=== PATIENT | female | born 1945 ===

== ENCOUNTER 2017-10-03 02:45 | Inpatient (IN) ==
[2017-10-03] MEDS: NS 1,000 ML IV SCH ×4 (02:50→18:55)
--- OUTSIDE RECORDS SUMMARY | 2017-10-03 02:56 | External Medical Summary | Continuity of Care Document ---
:1945 Author Organization [facility] Allergies There is no data. Medications There is no data. Problems There is no data. Procedures There is no data.<section xmlns="urn:hl7-org:v3" xmlns:xsi=" http://www.w3.org/2001/XMLSchema-instance"> <templateId root=" [id number]" /> <templateId root=" [id number]" /> <code codeSystemName=" LOINC" codeSystem="[id number]" code="62353-1&quot ; displayName="Results" /> <title>Results</title> &lt ;text> <table> <thead> <tr> <th& gt;Test</th> <th>Result</th> <th>Range </th> </tr> </thead> <tbody> &lt ;tr> <th colspan="10">MRSA SURVEILLANCE SCREEN - 11/09 14:56</th> </tr> <tr> <td> Uncategorized</td> <td> </td> <td /> & lt;/tr> <tr> <th colspan="10"> URINALYSIS WITH MICROSCOPIC - 07/12/12 15:23</th> </tr> <tr> <td>UA LEUKOCYTE ESTERASE DIPSTICK</td> <td>TRACE </td> <td>NEGATIVE</td> & lt;/tr> <tr> <td>UA NITRITE DIPSTICK</td> <td>NEGATIVE </td> <td>NEGATIVE</td> </tr> <tr> <td>UA PROTEIN DIPSTICK</ td> <td>NEGATIVE </td> <td>NEGATIVE</ td> </tr> <tr> <td>UA GLUCOSE DIPSTICK</td> <td>NEGATIVE </td> <td> NEGATIVE</td> </tr> <tr> <td>UA KETONE DIPSTICK</td> <td>1+ </td> <td> NEGATIVE</td> </tr> <tr> <td>UA UROBILINOGEN DIPSTICK</td> <td>NORMAL </td> & lt;td>NORMAL</td> </tr> <tr> <td& gt;UA BILIRUBIN DIPSTICK</td> <td>NEGATIVE </td> <td>NEGATIVE</td> </tr> <tr> <td>UA BLOOD DIPSTICK</td> <td>NEGATIVE </td&gt ; <td>NEGATIVE</td> </tr> <tr> <td>UA BACTERIA</td> <td>1+ </td> <td>NEGATIVE</td> </tr> <tr> <td>UA EPITHELIAL CELLS</td> <td>1+ epi/hpf</td& gt; <td>0 - 1+</td> </tr> <tr> <td>UA MUCUS</td> <td>1+ </td> & lt;td>NEG TO 1+</td> </tr> <tr> < td>UA RBC</td> <td>0-3 rbc/hpf</td> < td>0 - 3</td> </tr> <tr> <td>UA VOLUME FOR EXAM</td> <td>12.0 mL</td> <td >(12mL STD)</td> </tr> <tr> <td& gt;UAWBC</td> <td>0-1 wbc/hpf</td> <td&gt ;0 - 5</td> </tr> <tr> <td>UA SPECIFIC GRAVITY</td> <td>1.014 </td> <td >1.015-1.025</td> </tr> <tr> <td>UR PH </td> <td>5.0 </td> <td>5.0-7.0</td > </tr> <tr> <th colspan="10" >UR DRUGS OF ABUSE SCREEN - 07/12/12 15:23</th> </tr> <tr> <td>UR AMPHETAMINES SCREEN</td> &lt ;td>NEG (<1000 ng/mL) </td> <td>NEGATIVE</td& gt; </tr> <tr> <td>UR BARBITURATE SCREEN</td> <td>NEG (< 200 ng/mL) </td> <td>NEGATIVE</td> </tr> <tr> & lt;td>DRUGS OF ABUSE SCREEN COMMENT</td> <td> </td&gt ; <td /> </tr> <tr> <td> UR OPIATES SCREEN</td> <td>POS (> 300 ng/mL) </ td> <td>NEGATIVE</td> </tr> <tr> <td>UR PHENCYCLIDINE (PCP) SCREEN</td> <td>NEG (< 25 ng/mL) </td> <td>NEGATIVE</td> </tr> <tr> <td>UR CANNABINOIDS (THC) SCREEN& lt;/td> <td>NEG (< 50 ng/mL) </td> &lt ;td>NEGATIVE</td> </tr> <tr> <td& gt;UR COCAINE METABOLITE SCREEN</td> <td>NEG (< 300 ng/mL) </td> <td>NEGATIVE</td> </tr&gt ; <tr> <td>UR METHADONE SCREEN</td> & lt;td>NEG (< 300 ng/mL) </td> <td>NEGATIVE</ td> </tr> <tr> <td>UR BENZODIAZEPINE SCREEN</td> <td>NEG(< 200 ng/mL) < /td> <td>NEGATIVE</td> </tr> <tr& gt; <th colspan="10">CALCIUM IONIZED - 07/12/12 16:05& lt;/th></tr> <tr> <td>CALCIUM IONIZED</ td> <td>4.6 mg/dL</td> <td>4.5-5.3</td > </tr> <tr> <th colspan="10" >CBC W/DIFF - // 16:05</th> </tr> <tr> <td>BASOPHIL #</td> <td>0.0 k/cumm</td& gt; <td>0.0-0.2</td> </tr> <tr> <td>BASOPHIL %</td> <td>1 %& lt;/td> <td>0-1</td> </tr> <tr&gt ; <td>EOSINOPHIL #</td> <td>0.1 k/cumm</ td> <td>0.1-0.5</td> </tr> <tr&gt ; <td>EOSINOPHIL %</td> <td>2 &# 37;</td> <td>2-4</td> </tr> < tr> <td>GRANULOCYTE #</td> <td>2.7 k/cumm </td> <td>2.0-9.0</td> </tr> < tr> <td>GRANULOCYTE %</td> <td>59 %</td> <td>50-75</td> </tr> < tr> <td>LYMPHOCYTE #</td> <td>1.5 k/cumm& lt;/td> <td>1.0-4.0</td> </tr> < tr> <td>LYMPHOCYTE %</td> <td>33 %</td> <td>20-30</td> </tr> <tr> <td>MEAN CELL HGB</td> <td> 30.2 pg</td> <td>27.0-33.0</td> </tr> <tr> <td>MEAN CELL HGB CONCENTRATION</td> <td>32.9 g/dl</td> <td>32.0-36.0</td> </tr> <tr> <td>MEAN CELL VOLUME</td&gt ; <td>91.8 fl</td> <td>80.0-100.0</td&gt ; </tr> <tr> <td>MONOCYTE #</td> <td>0.3 k/cumm</td> <td>0.1-1.0</td> </tr> <tr> <td>MONOCYTE %</ td> <td>6 %</td> <td>4-6</td& gt; </tr> <tr> <td>RED BLOOD CELL</td&gt ; <td>4.05 m/cumm</td> <td>4.00-6.00</td& gt; </tr> <tr> <td>RED CELL DISTRIBUTIONWIDTH</td> <td>14.8 %</td> <td>11.0-15.6</td> </tr> <tr> <td>WHITE BLOOD CELL</td> <td>4.7 k/cumm</td&gt ; <td>5.0-10.0</td> </tr> <tr> <td>HEMOGLOBIN</td> <td>12.2 gm/dL</td> <td>12.0-16.0</td> </tr> <tr> <td>HEMATOCRIT</td> <td>37.2 %</td&gt ; <td>37.0-47.0</td> </tr> <tr> <td>PLATELET COUNT</td> <td>200 k/cumm</ td> <td>150-450</td> </tr> <tr&gt ; <th colspan="10">METABOLIC PANEL, COMPREHN - 16:05</th> </tr> <tr> <td> POTASSIUM</td> <td>3.7 mmol/L</td> <td&gt ;3.5-5.3</td> </tr> <tr> <td>EST GFR (MDRD)</td> <td>> 60 mL/min</td> <td>> 59</td> </tr> <tr> &lt ;td>ANION GAP</td> <td>11 mmol/L</td> &lt ;td>5-15</td> </tr> <tr> <td> EST CrCl (CG)</td> <td>> 60 mL/min</td> <td>> 59</td> </tr> <tr> <td>GLUCOSE</td> <td>74 mg/dL</td> <td >70-99</td> </tr> <tr> <td> CALCIUM</td> <td>8.6 mg/dL</td> <td> 8.5-10.1</td> </tr> <tr> <td> BLOOD UREA NITROGEN</td> <td>20 mg/dL</td> & lt;td>7-20</td> </tr> <tr> <td> CREATININE</td> <td>0.7 mg/dL</td> <td>0.6 -1.0</td> </tr> <tr> <td>SODIUM& lt;/td> <td>142 mmol/L</td> <td>135-148& lt;/td> </tr> <tr> <td>CHLORIDE</ td> <td>106 mmol/L</td> <td>98-110</td > </tr> <tr> <td>AST/SGOT</td&gt ; <td>32 Units/L</td> <td>10-37</td> </tr> <tr> <td>ALT/SGPT</td> <td>22 Units/L</td> <td>< 66</td> </tr> <tr> <td>CARBON DIOXIDE</td& gt; <td>25 mmol/L</td> <td>21-32</td> </tr> <tr> <td>TOTAL PROTEIN</td&gt ; <td>7.1 gm/dL</td> <td>6.4-8.2</td> </tr> <tr> <td>ALBUMIN</td> <td>3.2 gm/dL</td> <td>3.4-5.0</td> & lt;/tr> <tr> <td>BILI TOTAL</td> & lt;td>0.4 mg/dL</td> <td>0.0-1.0</td> </ tr> <tr> <td>ALKALINE PHOSPHATASE TOTAL</td&gt ; <td>111 Units/L</td> <td>50-136</td&gt ; </tr> <tr> <th colspan="10"&gt ;PHOSPHORUS - /14/12 16:05</th> </tr> <tr> &lt ;td>PHOSPHORUS</td> <td>2.8 mg/dL</td> & lt;td>2.5-4.9</td> </tr> <tr> < th colspan="10">MAGNESIUM -07/12/12 16:05</th> </tr > <tr> <td>MAGNESIUM</td> <td& gt;1.4 mg/dL</td> <td>1.8-2.4</td> </tr&gt ; <tr> <th colspan="10">T4 FREE - 07/12/12 16 :05</th></tr> <tr> <td>T4 FREE</td&gt ; <td>1.2 ng/dL</td> <td>0.9-1.8</td> </tr> <tr> <th colspan="10"> THYROID STIM HORMONE (TSH) - 07/12/12 16:05</th> </tr> < tr> <td>THYROID STIM HORMONE (TSH)</td> <td& gt;0.29 uIU/mL</td> <td>0.34-4.82</td> </tr > <tr> <th colspan="10">ACETAMINOPHEN ( TYLENOL) - 07/12/12 16:05</th> </tr> <tr> <td>ACETAMINOPHEN (TYLENOL)</td> <td>9 mcg/mL</ td> <td>10-30</td> </tr> <tr> <th colspan="10">SALICYLATE (ASPIRIN) - 07/12/12 16:05 </th> </tr> <tr> <td>SALICYLATE& lt;/td> <td>< 2.8 mg/dL</td> <td>2.8- 29.0</td> </tr> <tr> <th colspan=& quot;10">ALCOHOL (ETHANOL) SERUM - 07/12/12 16:05</th> < /tr> <tr> <td>ALCOHOL (ETHANOL) SERUM</td> <td>< 10 mg/dL</td> <td> < 10 </td> </tr> <tr> <th colspan=" 10">GLUCOSE (POC) - 07/12/12 17:12</th> </tr> <tr> <td>GLUCOSE (POC)</td> <td>92 mg/ dL</td> <td>70-99</td> </tr> < tr> <th colspan="10">GLUCOSE (POC) - 07/13/12 00:25& lt;/th> </tr> <tr> <td>GLUCOSE (POC) </td> <td>149 mg/dL</td> <td>70-99< /td> </tr> <tr> <th colspan="10"& gt;GLUCOSE (POC) - 07/13/12 05:53</th> </tr> <tr&gt ; <td>GLUCOSE (POC)</td> <td>125 mg/dL</td&gt ; <td>70-99</td> </tr> <tr> <th colspan="10">CALCIUM IONIZED - 07/13/12 06:02</th&gt ;</tr> <tr> <td>CALCIUM IONIZED</td> <td>4.5 mg/dL</td> <td>4.5-5.3</td> </tr> <tr> <th colspan="10">CBC W/DIFF - 07/13/12 06:02</th> </tr> <tr> <td>EOSINOPHIL #</td> <td>0.1 k/cumm</td> <td>0.1-0.5</td> </tr> <tr> <td>EOSINOPHIL %</td> <td>3 %</ td> <td>2-4</td> </tr> <tr> <td>GRANULOCYTE #</td> <td>2.7 k/cumm</td& gt; <td>2.0-9.0</td> </tr> <tr> <td>GRANULOCYTE %</td> <td>57 &# 37;</td> <td>50-75</td> </tr> &lt ;tr> <td>LYMPHOCYTE #</td> <td>1.5 k/cumm</td& gt; <td>1.0-4.0</td> </tr> <tr> <td>LYMPHOCYTE %</td> <td>32 &# 37;</td> <td>20-30</td> </tr> &lt ;tr> <td>MEAN CELL HGB</td> <td>28.9 pg& lt;/td> <td>27.0-33.0</td> </tr> <tr&gt ; <td>MEAN CELL HGB CONCENTRATION</td> <td> 31.6 g/dl</td> <td>32.0-36.0</td> </tr> <tr> <td>MEAN CELL VOLUME</td> < td>91.4 fl</td> <td>80.0-100.0</td> </tr > <tr> <td>MONOCYTE #</td> <td& gt;0.4 k/cumm</td> <td>0.1-1.0</td> </tr&gt ; <tr> <td>MONOCYTE %</td> & lt;td>8 %</td> <td>4-6</td> </tr > <tr> <td>RED BLOOD CELL</td> &lt ;td>4.09 m/cumm</td> <td>4.00-6.00</td> &lt ;/tr> <tr> <td>RED CELL DISTRIBUTION WIDTH</td > <td>13.6 %</td> <td>11.0-15.6& lt;/td> </tr> <tr> <td>WHITE BLOOD CELL</td> <td>4.8 k/cumm</td> <td>5.0- 10.0</td> </tr> <tr> <td> HEMOGLOBIN</td> <td>11.8 gm/dL</td> <td& gt;12.0-16.0</td> </tr> <tr> <td> HEMATOCRIT</td> <td>37.4 %</td> < td>37.0-47.0</td> </tr> <tr> <td& gt;PLATELET COUNT</td> <td>194 k/cumm</td> & lt;td>150-450</td> </tr> <tr> < th colspan="10">METABOLIC PANEL, COMPREHN - 07/13/12 06:02</th& gt; </tr> <tr> <td>POTASSIUM</td> <td>3.8 mmol/L</td> <td>3.5-5.3</td> </tr> <tr> <td>EST GFR (MDRD)</td> & lt;td>> 60 mL/min</td> <td>> 59</td&gt ; </tr> <tr> <td>ANION GAP</td> <td>9 mmol/L</td> <td>5-15</td> & lt;/tr> <tr> <td>EST CrCl (CG)</td> <td>> 60 mL/min</td> <td>> 59</td > </tr> <tr> <td>GLUCOSE</td> <td>112mg/dL</td> <td>70-99</td> </tr> <tr> <td>CALCIUM</td> <td>8.6 mg/dL</td> <td>8.5-10.1</td> & lt;/tr> <tr> <td>BLOOD UREA NITROGEN</td>& lt;td>13 mg/dL</td> <td>7-20</td> </tr& gt; <tr> <td>CREATININE</td> <td& gt;0.7 mg/dL</td> <td>0.6-1.0</td> </tr&gt ; <tr> <td>SODIUM</td> <td>145 mmol/L&lt ;/td> <td>135-148</td> </tr> <tr& gt; <td>CHLORIDE</td> <td>111 mmol/L</td& gt; <td>98-110</td> </tr> <tr> <td>AST/SGOT</td> <td>29 Units/L</td> <td>10-37</td> </tr><tr> <td&gt ;ALT/SGPT</td> <td>18 Units/L</td> <td&gt ;< 66</td> </tr> <tr> <td> CARBON DIOXIDE</td> <td>25 mmol/L</td> < td>21-32</td> </tr> <tr> <td> TOTAL PROTEIN</td> <td>6.6 gm/dL</td> <td >6.4-8.2</td> </tr> <tr> <td> ALBUMIN</td> <td>3.0 gm/dL</td> <td> 3.4-5.0</td> </tr> <tr> <td>BILI TOTAL</td> <td>0.4 mg/dL</td> <td>0.0- 1.0</td> </tr> <tr> <td>ALKALINE PHOSPHATASE TOTAL</td> <td>102 Units/L</td> <td>50-136</td> </tr> <tr> < th colspan="10">LIPID PANEL - 10/15/12 06:02</th> < /tr> <tr> <td>CHOLESTEROL/HDL RATIO</td> <td>2.2 </td> <td> < 5.0</td> </tr> <tr> <td>LDL CHOLESTEROL</td&gt ; <td>38 mg/dL</td> <td>< 100</td& gt; </tr> <tr> <td>VLDL CHOLESTEROL< /td> <td>13 mg/dL</td> <td>< 30</td> </tr> <tr> <td>TRIGLYCERIDES</td&gt ; <td>66 mg/dL</td> <td>< 150</td& gt; </tr> <tr> <td>CHOLESTEROL</td> <td>95 mg/dL</td> <td>< 200</td> </tr> <tr><td>HDL CHOLESTEROL</td> <td>44 mg/dL</td> <td>> 39</td> </tr> <tr> <th colspan="10"> PHOSPHORUS - 10 06:02</th> </tr> <tr> <td>PHOSPHORUS</td> <td>2.2 mg/dL</td> <td>2.5-4.9</td> </tr> <tr> <th colspan="10">MAGNESIUM - 07/13/12 06:02</th> </tr> <tr> <td>MAGNESIUM</td> <td>1.4 mg/dL</td> <td>1.8-2.4</td> & lt;/tr> <tr> <th colspan="10">GLUCOSE (POC) - 07/13/12 11:49</th> </tr> <tr> <td> GLUCOSE (POC)</td> <td>123 mg/dL</td> <td> 70-99</td> </tr> <tr> <th colspan=& quot;10">GLUCOSE (POC) - 07/13/12 16:35</th> </tr> <tr> <td>GLUCOSE (POC)</td> <td> 160 mg/dL</td> <td>70-99</td> </tr> <tr> <th colspan="10">GLUCOSE (POC)- 01:12</th> </tr> <tr> <td> GLUCOSE (POC)</td> <td>117 mg/dL</td> <td >70-99</td> </tr> <tr> <th colspan="10">CBC W/DIFF - 07/14/12 05:12</th> </tr& gt; <tr> <td>BASOPHIL #</td> <td& gt;0.0k/cumm</td> <td>0.0-0.2</td> </tr&gt ; <tr> <td>BASOPHIL %</td> <td> 1 %</td> <td>0-1</td> </tr> <tr> <td>EOSINOPHIL #</td> <td>0.1 k/ cumm</td> <td>0.1-0.5</td> </tr> <tr> <td>EOSINOPHIL %</td> <td&gt ;3 %</td> <td>2-4</td> </tr> <tr> <td>GRANULOCYTE #</td> <td> 1.6 k/cumm</td> <td>2.0-9.0</td> </tr> & lt;tr> <td>GRANULOCYTE %</td> <td&gt ;38 %</td> <td>50-75</td> </tr> <tr> <td>LYMPHOCYTE #</td> <td> 2.0 k/cumm</td> <td>1.0-4.0</td> </tr> <tr> <td>LYMPHOCYTE %</td> & lt;td>48 %</td> <td>20-30</td> < /tr> <tr> <td>MEAN CELL HGB</td> & lt;td>28.6 pg</td> <td>27.0-33.0</td> </ tr> <tr> <td>MEAN CELL HGB CONCENTRATION</td& gt; <td>30.9 g/dl</td> <td>32.0-36.0</td& gt; </tr> <tr> <td>MEAN CELL VOLUME< /td> <td>92.5 fl</td> <td>80.0-100.0</td& gt; </tr> <tr> <td>MONOCYTE #</td> <td>0.4 k/cumm</td> <td>0.1-1.0</td> </ tr> <tr> <td>MONOCYTE %</td> <td>11 %</td> <td>4-6</td> & lt;/tr> <tr> <td>RED BLOOD CELL</td> <td>3.74 m/cumm</td> <td>4.00-6.00</td> </tr> <tr><td>RED CELL DISTRIBUTION WIDTH</td& gt; <td>14.0 %</td> <td>11.0-15.6</td&gt ; </tr> <tr> <td>WHITE BLOODCELL</td > <td>4.2 k/cumm</td> <td>5.0-10.0</td > </tr> <tr> <td>HEMOGLOBIN</td> <td>10.7 gm/dL</td> <td>12.0-16.0</td> </tr> <tr> <td>HEMATOCRIT</td> <td>34.6 %</td> <td>37.0-47.0</td& gt; </tr> <tr> <td>PLATELET COUNT</ td> <td>182 k/cumm</td> <td>150-450</td> </tr> <tr> <th colspan="10"> METABOLIC PANEL, COMPREHN - 07/14/12 05:12</th> </tr> <tr> <td>POTASSIUM</td> <td>4.6 mmol/L </td> <td>3.5-5.3</td> </tr> < tr> <td>EST GFR (MDRD)</td> <td>> 60 mL /min</td> <td>> 59</td> </tr> <tr> <td>ANION GAP</td> <td>5 mmol/L</td> <td>5-15</td> </tr> &lt ;tr> <td>EST CrCl (CG)</td> <td>> 60 mL/min</td> <td>> 59</td> </tr&gt ; <tr> <td>GLUCOSE</td> <td> 118 mg/dL</td> <td>70-99</td> </tr> <tr> <td>CALCIUM</td> <td>7.9 mg/dL </td> <td>8.5-10.1</td> </tr> &lt ;tr> <td>BLOOD UREA NITROGEN</td> <td>12 mg/dL</td> <td>7-20</td> </tr> & lt;tr> <td>CREATININE</td> <td>0.7 mg/dL& lt;/td> <td>0.6-1.0</td> </tr> < tr> <td>SODIUM</td> <td>143 mmol/L</td > <td>135-148</td> </tr> <tr> <td>CHLORIDE</td> <td>111 mmol/L</td> <td>98-110</td> </tr> <tr> &lt ;td>AST/SGOT</td> <td>22 Units/L</td> &lt ;td>10-37</td> </tr> <tr> <td> ALT/SGPT</td> <td>13 Units/L</td> <td>&amp ;lt; 66</td> </tr> <tr> <td>CARBON DIOXIDE</td> <td>27 mmol/L</td> <td>21- 32</td> </tr> <tr> <td>TOTAL PROTEIN</td> <td>6.1 gm/dL</td> <td> 6.4-8.2</td></tr> <tr> <td>ALBUMIN</ td> <td>2.5 gm/dL</td> <td>3.4-5.0</td > </tr> <tr> <td>BILI TOTAL</td& gt; <td>0.2 mg/dL</td> <td>0.0-1.0</td&gt ; </tr> <tr> <td>ALKALINE PHOSPHATASE TOTAL</td> <td>104 Units/L</td> <td>50-136</ td> </tr> <tr> <th colspan="10& quot;>PHOSPHORUS - 07/14/12 05:12</th> </tr> <tr > <td>PHOSPHORUS</td> <td>2.3 mg/dL</ td> <td>2.5-4.9</td> </tr> <tr&gt ; <th colspan="10">MAGNESIUM - 07/14/12 05:12</th&gt ; </tr> <tr> <td>MAGNESIUM</td> <td>1.8 mg/dL</td> <td>1.8-2.4</td> & lt;/tr> <tr> <th colspan="10">GLUCOSE ( POC) - 07/14/12 06:44</th> </tr> <tr> & lt;td>GLUCOSE (POC)</td> <td>110 mg/dL</td> <td>70-99</td> </tr> </tbody> </ table> </text> <entry> <organizer moodCode="EVN&quot ; classCode="BATTERY"> <templateId root=" [id number]" /> <id nullFlavor="NA&quot ; /> <code codeSystem="local" code="MRSAS" displayName="[facility] SURVEILLANCE SCREEN" /> <statusCode code= "completed" /> <component> <observation moodCode="EVN" classCode="OBS"> <templateId root="[id number]" /> <id nullFlavor ="NA" /> <code codeSystem="local" code=" [facility]" displayName="Uncategorized" /> <statusCode code="completed" /> <effectiveTime value=" [id number]" /> <value xsi:type="ST" value="<pre& gt;<b>MRSA SURVEILLANCE SCREEN</b> See BelowMRSA SURVEILLANCE SCREEN (F) Anoop Date/Time: 07/12/2012 14:56 Sis Date/Time: 07/13/2012 13:56SOURCE : ANTERIOR NARESSPEC DESC: [facility]ETHIC[facility] [phone] [place] [address]</pre>& quot; /> <referenceRange> <observationRange> <text /> </observationRange> </ referenceRange> </observation> </component> </ organizer> </entry> <entry> <organizer moodCode="EVN " classCode="BATTERY"> <templateId root=" 2.16.840.1.094877.10.20.22.4.1" /> <id nullFlavor="NA&quot ; /> <code codeSystem="local" code="UAM" displayName="URINALYSIS WITH MICROSCOPIC" /> <statusCode code="completed" /> <component> <observation moodCode="EVN" classCode="OBS"> <templateId root="216.840.1.793791...22.4.2" /> <id nullFlavor ="NA" /> <code codeSystem="local" code=" LEUESU" displayName="UA LEUKOCYTE ESTERASE DIPSTICK" /> <statusCode code="completed" /> <effectiveTime value="810089354263" /> <value unit="" xsi: type="PQ" value="TRACE" /> <interpretationCode codeSystem="local" code="*" /> < referenceRange> <observationRange> <text> NEGATIVE</text> </observationRange> </ referenceRange> </observation></component> < component> <observation moodCode="EVN" classCode=" OBS"> <templateId root="2.16.840.1.950993.10..22.4.2& quot; /> <id nullFlavor="NA" /> <code codeSystem="local" code="NITRIU" displayName="UA NITRITE DIPSTICK" /> <statusCode code="completed" /> <effectiveTime value="981429709426" /> & lt;value unit="" xsi:type="PQ" value="NEGATIVE" /& gt; <referenceRange> <observationRange> <text>NEGATIVE</text> </observationRange> </ referenceRange> </observation> </component> < component> <observation moodCode="EVN" classCode=" OBS"> <templateId root="2.16.840.1.652556.10.20.22.4.2& quot; /> <id nullFlavor="NA" /> <code codeSystem="local" code="PROTEIU" displayName="UA PROTEIN DIPSTICK" /> <statusCode code="completed" /> <effectiveTime value="742489768239" /> & lt;value unit="" xsi:type="PQ" value="NEGATIVE" /& gt; <referenceRange> <observationRange> <text>NEGATIVE</text> </observationRange> </referenceRange> </observation> </component& gt; <component> <observation moodCode="EVN" classCode="OBS"> <templateId root=" 2.16.840.1.248559.10..22.4.2" /> <id nullFlavor="NA& quot; /> <code codeSystem="local" code="DGLUU&quot ; displayName="UA GLUCOSE DIPSTICK" /> <statusCode code ="completed" /> <effectiveTime value="927686217941 " /> <value unit="" xsi:type="PQ" value= "NEGATIVE" /> <referenceRange> < observationRange> <text>NEGATIVE</text> & lt;/observationRange> </referenceRange> </ observation> </component><component> <observation moodCode="EVN" classCode="OBS"> <templateId root=& quot;2.16.840.1.196248.10..22.4.2" /> <id nullFlavor=&quot ;NA" /> <code codeSystem="local" code="KETONU " displayName="UA KETONE DIPSTICK" /> <statusCode code="completed" /> <effectiveTime value="399920820335& quot; /> <value unit="" xsi:type="PQ" value=& quot;1+" /> <interpretationCode codeSystem="local&quot ; code="*" /> <referenceRange> < observationRange> <text>NEGATIVE</text> < /observationRange> </referenceRange> </observation& gt; </component> <component> <observation moodCode="EVN" classCode="OBS"> <templateId root="2.16.840.1.870675.10.20.22.4.2" /> <id nullFlavor ="NA" /> <code codeSystem="local" code=" UROBILU" displayName="UA UROBILINOGEN DIPSTICK" /> & lt;statusCode code="completed" /> <effectiveTime value= "512529287003" /> <value unit="" xsi:type=& quot;PQ" value="NORMAL" /> <referenceRange> <observationRange> <text>NORMAL</text> </observationRange> </referenceRange> </ observation> </component> <component> < observation moodCode="EVN" classCode="OBS"> < templateId root="2.16.840.1.969406.10..22.4.2" /> < id nullFlavor="NA" /> <code codeSystem="local&quot ; code="BILU" displayName="UA BILIRUBIN DIPSTICK" /> <statusCode code="completed" /> < effectiveTime value="416316439255" /> <value unit=&quot ;" xsi:type="PQ" value="NEGATIVE" /> < referenceRange> <observationRange> <text> NEGATIVE</text> </observationRange> </ referenceRange> </observation> </component> < component> <observation moodCode="EVN" classCode=" OBS"> <templateId root="2.16.840.1.602932.10.20.22.4.2& quot; /> <id nullFlavor="NA" /> <code codeSystem="local" code="SAMUEL" displayName="UA BLOOD DIPSTICK" /><statusCode code="completed" /> &lt ;effectiveTime value="474677235764" /> <value unit=& quot;" xsi:type="PQ" value="NEGATIVE" /> & lt;referenceRange> <observationRange> <text& gt;NEGATIVE</text> </observationRange> </ referenceRange> </observation> </component> < component> <observation moodCode="EVN" classCode=" OBS"> <templateId root="2.16.840.1.516766.10.20.22.4.2& quot; /> <id nullFlavor="NA" /> <code codeSystem="local" code="BACU" displayName="UA BACTERIA " /> <statusCode code="completed" /> & lt;effectiveTime value="130691177975" /> <value unit="& quot; xsi:type="PQ" value="1+" /> < interpretationCode codeSystem="local" code="*" /> <referenceRange> <observationRange> <text& gt;NEGATIVE</text> </observationRange> </ referenceRange> </observation> </component> < component> <observation moodCode="EVN" classCode=" OBS"> <templateId root="2.16.840.1.490526.10.20.22.4.2& quot; /> <id nullFlavor="NA" /> <code codeSystem="local" code="EPIU" displayName="UA EPITHELIAL CELLS" /> <statusCode code="completed" /> <effectiveTime value="300484505428" /> &lt ;value unit="epi/hpf" xsi:type="PQ" value="1+" /& gt; <referenceRange> <observationRange> <text>0 - 1+</text> </observationRange> </referenceRange> </observation> </component&gt ; <component> <observation moodCode="EVN" classCode="OBS"> <templateId root=" 2.16.840.1.395784.10.20.22.4.2" /> <id nullFlavor="NA& quot; /> <code codeSystem="local" code="MUCUSU& quot; displayName="UA MUCUS" /> <statusCode code=" completed" /> <effectiveTime value="741215674029" /> <value unit="" xsi:type="PQ" value="1 +" /> <referenceRange> <observationRange&gt ; <text>NEG TO 1+</text> </observationRange& gt; </referenceRange> </observation> </ component> <component> <observation moodCode="EVN& quot; classCode="OBS"> <templateId root=" 2.16.840.1.887043.10..22.4.2" /> <id nullFlavor="NA& quot; /> <code codeSystem="local" code="RBCU&quot ; displayName="UA RBC" /> <statusCode code="completed& quot; /> <effectiveTime value="773286073026" /> <value unit="rbc/hpf" xsi:type="PQ" value="0-3 " /> <referenceRange> <observationRange&gt ; <text>0 - 3</text> </observationRange& gt; </referenceRange> </observation> </ component> <component> <observation moodCode="EVN& quot; classCode="OBS"> <templateId root=" 2.16.840.1.315301.10..22.4.2" /> <id nullFlavor="NA& quot; /> <code codeSystem="local" code="UAVOL&quot ; displayName="UA VOLUME FOR EXAM" /> <statusCode code= "completed" /> <effectiveTime value="686369469357& quot; /> <value unit="mL" xsi:type="PQ" value ="12.0" /> <referenceRange> < observationRange> <text>(12mL STD)</text> </observationRange> </referenceRange> </ observation> </component> <component> < observation moodCode="EVN" classCode="OBS"> < templateId root="2.16.840.1.052764.10.20.22.4.2" /> < id nullFlavor="NA" /> <code codeSystem="local&quot ; code="WBCU" displayName="UA WBC" /> < statusCode code="completed" /> <effectiveTime value=& quot;049384756741" /> <valueunit="wbc/hpf" xsi: type="PQ" value="0-1" /> <referenceRange> <observationRange> <text>0 - 5</text&gt ; </observationRange> </referenceRange> & lt;/observation> </component> <component> < observation moodCode="EVN" classCode="OBS"> < templateId root="2.16.840.1.873616.10.20.22.4.2" /> < id nullFlavor="NA" /> <code codeSystem="local&quot ; code="SPGRU" displayName="UA SPECIFIC GRAVITY" /> <statusCode code="completed" /> <effectiveTime value="824217889790" /> <value unit="" xsi: type="PQ" value="1.014" /> < interpretationCode codeSystem="local" code="*" /> <referenceRange> <observationRange> < text>1.015-1.025</text> </observationRange> & lt;/referenceRange> </observation> </component> <component> <observation moodCode="EVN" classCode=& quot;OBS"> <templateId root=" 2.16.840.1.311272.10.20.22.4.2" /> <id nullFlavor="NA& quot; /> <code codeSystem="local" code="CHRISTAL" displayName="UR PH" /> <statusCode code="completed " /> <effectiveTime value="078562772879" /> <value unit="" xsi:type="PQ" value="5.0&quot ; /> <referenceRange> <observationRange>< text>5.0-7.0</text> </observationRange> </ referenceRange> </observation> </component> </ organizer> </entry> <entry> <organizer moodCode="EVN " classCode="BATTERY"> <templateId root=" 2.16.840.1.385609.10.20.22.4.1" /> <id nullFlavor="NA&quot ; /> <code codeSystem="local" code="DRUGAB" displayName="UR DRUGS OF ABUSESCREEN" /> <statusCode code=& quot;completed" /> <component> <observation moodCode=&quot ;EVN" classCode="OBS"> <templateId root=" 2.16.840.1.324916.10.20.22.4.2" /> <id nullFlavor="NA& quot; /> <code codeSystem="local" code="AMPHU" displayName="UR AMPHETAMINES SCREEN" /> <statusCode code="completed" /> <effectiveTime value=" 222990457045" /> <value unit="" xsi:type="PQ& quot; value="NEG (<1000 ng/mL)" /> < referenceRange> <observationRange> <text> NEGATIVE</text> </observationRange> </ referenceRange> </observation> </component> < component> <observation moodCode="EVN" classCode=" OBS"> <templateId root="2.16.840.1.300806.10.20.22.4.2& quot; /> <id nullFlavor="NA" /> <code codeSystem="local" code="BARBU" displayName="UR BARBITURATE SCREEN" /> <statusCode code="completed&quot ; /> <effectiveTime value="179052694212" /> <value unit="" xsi:type="PQ" value="NEG (&lt ; 200 ng/mL)" /> <referenceRange><observationRange&gt ; <text>NEGATIVE</text> </ observationRange> </referenceRange> </observation&gt ; </component> <component> <observation moodCode ="EVN" classCode="OBS"> <templateId root=" 2.16.840.1.639829.10..22.4.2" /> <id nullFlavor="NA& quot; /> <code codeSystem="local" code="DAUCOMMENT " displayName="DRUGS OF ABUSE SCREEN COMMENT" /> < statusCode code="completed" /> <effectiveTime value=& quot;387237300206" /> <value unit="" xsi:type=& quot;PQ" value="" /> <referenceRange> & lt;observationRange> <text /> </ observationRange> </referenceRange> </observation> & lt;/component> <component> <observation moodCode="EVN " classCode="OBS"> <templateIdroot=" 2.16.840.1.188409.10..22.4.2" /> <id nullFlavor="NA& quot; /> <code codeSystem="local" code="OPIU&quot ; displayName="UR OPIATES SCREEN" /> <statusCode code=& quot;completed" /> <effectiveTimevalue="273933066675& quot; /> <value unit="" xsi:type="PQ" value=& quot;POS (> 300 ng/mL)" /> <interpretationCode codeSystem="local" code="*" /> < referenceRange> <observationRange> <text> NEGATIVE</text> </observationRange> </ referenceRange> </observation> </component> < component> <observation moodCode="EVN" classCode=" OBS"> <templateId root="2.16.840.1.040199.10.20.22.4.2& quot; /> <id nullFlavor="NA" /><code codeSystem=& quot;local" code="PCPU" displayName="UR PHENCYCLIDINE (PCP) SCREEN" /> <statusCode code="completed" /> <effectiveTime value="141965873996" /> <value unit="" xsi:type="PQ" value="NEG (< 25 ng/mL)& quot; /> <referenceRange> <observationRange> <text>NEGATIVE</text> </observationRange > </referenceRange> </observation> </ component> <component> <observation moodCode="EVN& quot; classCode="OBS"> <templateId root=" 2.16.840.1.199461.10..22.4.2" /> <id nullFlavor="NA& quot; /> <code codeSystem="local" code="THCU&quot ; displayName="UR CANNABINOIDS (THC) SCREEN" /> < statusCode code="completed" /><effectiveTime value=" 996638416602" /> <value unit="" xsi:type="PQ& quot; value="NEG (< 50 ng/mL)" /> < referenceRange> <observationRange> <text> NEGATIVE</text> </observationRange> </ referenceRange> </observation> </component> < component> <observation moodCode="EVN" classCode=" OBS"> <templateId root="2.16.840.1.413752.10..22.4.2& quot; /> <id nullFlavor="NA" /> <code codeSystem="local" code="COCAU" displayName="UR COCAINE METABOLITE SCREEN" /> <statusCode code=" completed" /> <effectiveTime value="545943382504" /> <value unit="" xsi:type="PQ" value=" NEG (< 300 ng/mL)" /> <referenceRange> <observationRange> <text>NEGATIVE</text> & lt;/observationRange> </referenceRange> </ observation> </component> <component> < observation moodCode="EVN" classCode="OBS"> < templateId root="2.16.840.1.293613.10.20.22.4.2" /> <id nullFlavor="NA" /> <code codeSystem="local" code="METHU" displayName="UR METHADONE SCREEN" /> <statusCode code="completed" /> <effectiveTime value="177794591513" /> <value unit="" xsi: type="PQ" value="NEG (< 300 ng/mL)" /> & lt;referenceRange> <observationRange> <text& gt;NEGATIVE</text> </observationRange> </ referenceRange> </observation> </component> < component> <observation moodCode="EVN" classCode=" OBS"> <templateId root="2.16.840.1.359086..20.22.4.2& quot; /> <id nullFlavor="NA" /> <code codeSystem="local" code="BENZU" displayName="UR BENZODIAZEPINE SCREEN" /> <statusCode code="completed& quot; /> <effectiveTime value="189179560174" /> < value unit="" xsi:type="PQ" value="NEG (< 200 ng/mL)" /> <referenceRange> < observationRange> <text>NEGATIVE</text> & lt;/observationRange> </referenceRange> </ observation> </component> </organizer> </entry> & lt;entry> <organizer moodCode="EVN" classCode="BATTERY& quot;> <templateId root="2.16.840.1.756460.10.20.22.4.1" /& gt; <id nullFlavor="NA" /> <code codeSystem=" local" code="CAION" displayName="CALCIUM IONIZED" /&gt ; <statusCode code="completed" /> <component> <observation moodCode="EVN" classCode="OBS"> <templateId root="2.16.840.1.149463.10.20.22.4.2" /> <id nullFlavor="NA" /> <code codeSystem=" local" code="CAION" displayName="CALCIUM IONIZED" /&gt ; <statusCode code="completed" /> < effectiveTime value="430561515522" /> <value unit=&quot ;mg/dL" xsi:type="PQ" value="4.6" /> < referenceRange> <observationRange> <text> 4.5-5.3</text> </observationRange> </ referenceRange> </observation> </component> </ organizer> </entry> <entry> <organizermoodCode="EVN& quot; classCode="BATTERY"> <templateId root=" 2.16.840.1.718527.10.20.22.4.1" /> <id nullFlavor="NA&quot ; /> <code codeSystem="local" code="CBCD" displayName="CBC W/DIFF" /> <statusCodecode="completed " /> <component> <observation moodCode="EVN& quot; classCode="OBS"> <templateId root=" 2.16.840.1.371282.10.20.22.4.2" /> <id nullFlavor="NA& quot; /> <code codeSystem="local" code="BA#" displayName="BASOPHIL #" /> <statusCode code=" completed" /> <effectiveTime value="784655054987" /> <value unit="k/cumm" xsi:type="PQ" value=& quot;0.0" /> <referenceRange> < observationRange> <text>0.0-0.2</text> </ observationRange> </referenceRange> </observation&gt ; </component> <component> <observation moodCode ="EVN" classCode="OBS"> <templateId root=& quot;2.16.840.1.619035.10.20.22.4.2" /> <id nullFlavor=&quot ;NA" /> <code codeSystem="local" code="BA&amp ;#37;" displayName="BASOPHIL %" /> < statusCode code="completed" /> <effectiveTime value=& quot;918700060006" /> <valueunit="%" xsi: type="PQ" value="1" /> <referenceRange> <observationRange> <text>0-1</text> </observationRange> </referenceRange> </ observation> </component> <component> < observation moodCode="EVN" classCode="OBS"> < templateId root="2.16.840.1.049952.10.20.22.4.2" /> < id nullFlavor="NA" /> <code codeSystem="local&quot ; code="EO#" displayName="EOSINOPHIL #" /> < statusCode code="completed" /> <effectiveTime value=" 880702583331" /> <value unit="k/cumm" xsi:type=& quot;PQ" value="0.1" /> <referenceRange> <observationRange> <text>0.1-0.5</text> </observationRange> </referenceRange> </ observation> </component> <component> < observation moodCode="EVN" classCode="OBS"> < templateId root="2.16.840.1.450827.10.20.22.4.2" /> < id nullFlavor="NA" /> <code codeSystem="local&quot ; code="EO%" displayName="EOSINOPHIL %" /&gt ; <statusCode code="completed" /> <effectiveTime value="852271098413" /> <value unit="%& quot; xsi:type="PQ" value="2" /> < referenceRange> <observationRange> <text> 2-4</text> </observationRange> </referenceRange > </observation> </component> <component> <observation moodCode="EVN" classCode="OBS"> <templateId root="2.16.840.1.908590.10.20.22.4.2" /> <id nullFlavor="NA" /> <code codeSystem=& quot;local" code="GR#" displayName="GRANULOCYTE #" /&gt ; <statusCode code="completed" /> < effectiveTime value="188617840541" /> <value unit=&quot ;k/cumm" xsi:type="PQ" value="2.7" /> < referenceRange> <observationRange> <text> 2.0-9.0</text> </observationRange> </ referenceRange> </observation> </component> < component> <observation moodCode="EVN" classCode=" OBS"> <templateId root="2.16.840.1.075627.10.20.22.4.2& quot; /> <id nullFlavor="NA" /><code codeSystem=& quot;local" code="GR%" displayName="GRANULOCYTE &amp ;#37;" /> <statusCode code="completed" /> <effectiveTime value="948825141786" /> <value unit="%" xsi:type="PQ" value="59" /> <referenceRange> <observationRange> <text>50-75</text> </observationRange> &lt ;/referenceRange> </observation> </component> & lt;component> <observation moodCode="EVN" classCode=&quot ;OBS"> <templateId root="2.16.840.1.850639.10.20.22.4.2 " /> <id nullFlavor="NA" /> <code codeSystem="local" code="LY#" displayName="LYMPHOCYTE # " /> <statusCode code="completed" /> & lt;effectiveTime value="530809196308" /> <value unit=& quot;k/cumm" xsi:type="PQ" value="1.5" /> & lt;referenceRange> <observationRange> <text& gt;1.0-4.0</text> </observationRange> </ referenceRange> </observation> </component> < component> <observation moodCode="EVN" classCode=" OBS"> <templateId root="2.16.840.1.424156.10.20.22.4.2& quot; /> <id nullFlavor="NA" /> <code codeSystem="local" code="LY%" displayName=" LYMPHOCYTE %" /> <statusCode code="completed&quot ; /> <effectiveTime value="344060190141" /> <value unit="%" xsi:type="PQ" value="33& quot; /> <interpretationCode codeSystem="local" code=& quot;*" /> <referenceRange> <observationRange > <text>20-30</text> </ observationRange> </referenceRange> </observation&gt ; </component> <component> <observation moodCode ="EVN" classCode="OBS"> <templateId root=& quot;2.16.840.1.603291.10..22.4.2" /> <id nullFlavor=&quot ;NA" /> <code codeSystem="local" code="MCH& quot; displayName="MEAN CELL HGB" /> <statusCode code=& quot;completed" /> <effectiveTime value="384890776900& quot; /> <value unit="pg" xsi:type="PQ" value ="30.2" /> <referenceRange> < observationRange> <text>27.0-33.0</text> </ observationRange> </referenceRange> </observation&gt ; </component> <component> <observation moodCode ="EVN" classCode="OBS"> <templateId root=& quot;2.16.840.1.082828.10.20.22.4.2" /> <id nullFlavor=&quot ;NA" /> <code codeSystem="local" code="[facility]& quot; displayName="MEAN CELL HGB CONCENTRATION" /> < statusCode code="completed" /> <effectiveTime value=& quot;657200161473" /> <value unit="g/dl" xsi:type= "PQ" value="32.9" /> <referenceRange> <observationRange> <text>32.0-36.0</text&gt ; </observationRange> </referenceRange> </ observation> </component> <component> < observation moodCode="EVN" classCode="OBS"> < templateId root="2.16.840.1.380728.10.20.22.4.2" /> < id nullFlavor="NA" /> <code codeSystem="local&quot ; code="MCV" displayName="MEAN CELL VOLUME" /> & lt;statusCode code="completed" /> <effectiveTime value= "320494963857" /> <value unit="fl" xsi:type=& quot;PQ" value="91.8" /> <referenceRange> & lt;observationRange> <text>80.0-100.0</text> </observationRange> </referenceRange> </ observation> </component> <component> < observation moodCode="EVN" classCode="OBS"> < templateId root="2.16.840.1.118023.10.20.22.4.2" /> < id nullFlavor="NA" /> <code codeSystem="local&quot ; code="MO#" displayName="MONOCYTE #" /> < statusCode code="completed" /> <effectiveTime value=& quot;176965210707" /> <value unit="k/cumm" xsi: type="PQ" value="0.3" /> <referenceRange> <observationRange> <text>0.1-1.0</text& gt; </observationRange> </referenceRange> </ observation> </component> <component> < observation moodCode="EVN" classCode="OBS"> < templateId root="2.16.840.1.521671.10.20.22.4.2" /> < id nullFlavor="NA" /> <code codeSystem="local&quot ; code="MO%" displayName="MONOCYTE %" /> <statusCode code="completed" /> < effectiveTime value="901952845262" /> <value unit=&quot ;%" xsi:type="PQ" value="6" /> < referenceRange> <observationRange> <text> 4-6</text> </observationRange> </ referenceRange> </observation> </component> < component> <observation moodCode="EVN" classCode="OBS" > <templateId root="2.16.840.1.361825.10.20.22.4.2" /& gt; <id nullFlavor="NA" /> <code codeSystem=& quot;local" code="RBC" displayName="RED BLOOD CELL" /& gt; <statusCode code="completed" /> < effectiveTime value="428437838305" /> <value unit=&quot ;m/cumm" xsi:type="PQ" value="4.05" /> < referenceRange> <observationRange> <text>4.00-6.00& lt;/text> </observationRange> </referenceRange& gt; </observation> </component> <component> <observation moodCode="EVN" classCode="OBS"> <templateId root="2.16.840.1.983507.10.20.22.4.2" /> <id nullFlavor="NA" /> <code codeSystem=&quot ;local" code="RDW" displayName="RED CELL DISTRIBUTION WIDTH& quot; /> <statusCode code="completed" /> & lt;effectiveTime value="041735257636" /> <value unit=& quot;%" xsi:type="PQ" value="14.8" /> <referenceRange> <observationRange> <text> 11.0-15.6</text> </observationRange> </ referenceRange> </observation> </component> < component> <observation moodCode="EVN" classCode=" OBS"> <templateId root="2.16.840.1.412493.10.20.22.4.2& quot; /> <id nullFlavor="NA" /> <code codeSystem="local" code="WBC" displayName="WHITE BLOOD CELL" /> <statusCode code="completed" /> <effectiveTime value="225972669050" /> <value unit="k/cumm" xsi:type="PQ" value="4.7" /> <interpretationCode codeSystem="local" code="*" /& gt; <referenceRange> <observationRange> <text>5.0-10.0</text> </observationRange> </referenceRange> </observation> </component&gt ; <component> <observation moodCode="EVN" classCode="OBS"> <templateId root=" 2.16.840.1.980839.10.20.22.4.2" /> <id nullFlavor="NA& quot; /> <code codeSystem="local" code="HGBT&quot ; displayName="HEMOGLOBIN" /> <statusCode code=" completed" /> <effectiveTime value="785709092472" /> <value unit="gm/dL" xsi:type="PQ" value=& quot;12.2" /> <referenceRange> < observationRange> <text>12.0-16.0</text> </ observationRange> </referenceRange> </observation&gt ; </component> <component> <observation moodCode ="EVN" classCode="OBS"> <templateId root=& quot;2.16.840.1.188726.10.20.22.4.2" /> <id nullFlavor="NA& quot; /> <code codeSystem="local" code="HCTT&quot ; displayName="HEMATOCRIT" /> <statusCode code=" completed" /> <effectiveTime value="831220073282" /> <value unit="%" xsi:type="PQ" value="37.2" /> <referenceRange> < observationRange> <text>37.0-47.0</text> </observationRange> </referenceRange> </ observation> </component> <component> < observation moodCode="EVN" classCode="OBS"> < templateId root="2.16.840.1.745880.10.20.22.4.2" /> < id nullFlavor="NA" /> <code codeSystem="local&quot ; code="PLT" displayName="PLATELET COUNT" /> &lt ;statusCode code="completed" /> <effectiveTime value=" 307407950876" /> <value unit="k/cumm" xsi:type=& quot;PQ" value="200" /> <referenceRange> <observationRange> <text>150-450</text> </observationRange> </referenceRange> </ observation> </component> </organizer> </entry> & lt;entry> <organizer moodCode="EVN" classCode="BATTERY& quot;> <templateId root="2.16.840.1.527155.10.20.22.4.1" /& gt; <id nullFlavor="NA" /> <code codeSystem=" local" code="METABC" displayName="METABOLIC PANEL, COMPREHN& quot; /> <statusCode code="completed" /> < component> <observation moodCode="EVN" classCode=" OBS"> <templateId root="2.16.840.1.997318.10.20.22.4.2& quot; /> <idnullFlavor="NA" /> <code codeSystem="local" code="K" displayName="POTASSIUM&quot ; /> <statusCode code="completed" /> < effectiveTime value="304529518674" /> <value unit=&quot ;mmol/L" xsi:type="PQ" value="3.7" /> < referenceRange> <observationRange> <text> 3.5-5.3</text> </observationRange> </ referenceRange> </observation> </component> < component> <observation moodCode="EVN" classCode=" OBS"> <templateId root="2.16.840.1.287561.10.20.22.4.2& quot; /> <id nullFlavor="NA" /> <code codeSystem="local" code="eGFR" displayName="EST GFR ( MDRD)" /> <statusCode code="completed" /> <effectiveTime value="764092396734" /> <value unit="mL/min" xsi:type="PQ" value="> 60" /& gt; <referenceRange> <observationRange> <text>> 59</text> </observationRange> </referenceRange> </observation> </component&gt ; <component> <observation moodCode="EVN" classCode="OBS"> <templateId root=" 2.16.840.1.261596.10.20.22.4.2" /> <id nullFlavor="NA& quot;/> <code codeSystem="local" code="GAP" displayName="ANION GAP" /> <statusCode code=" completed" /> <effectiveTime value="371019288916" /> <value unit="mmol/L" xsi:type="PQ" value=& quot;11" /> <referenceRange> < observationRange> <text>5-15</text> </ observationRange> </referenceRange> </observation&gt ; </component> <component> <observation moodCode ="EVN" classCode="OBS"> <templateId root=& quot;2.16.840.1.627070.10.20.22.4.2" /> <id nullFlavor=&quot ;NA" /> <code codeSystem="local" code="eCrCl& quot; displayName="EST CrCl (CG)" /> <statusCode code=" completed" /> <effectiveTime value="578905258644" /> <value unit="mL/min" xsi:type="PQ" value=& quot;> 60" /> <referenceRange> < observationRange> <text>> 59</text> </observationRange> </referenceRange> </ observation> </component> <component> < observation moodCode="EVN" classCode="OBS"> < templateId root="2.16.840.1.214202.10..22.4.2" /> < id nullFlavor="NA" /> <code codeSystem="local&quot ; code="GLU" displayName="GLUCOSE" /> < statusCode code="completed" /> <effectiveTime value=& quot;417380774244" /> <value unit="mg/dL" xsi:type ="PQ" value="74" /> <referenceRange> <observationRange> <text>70-99</text> </observationRange> </referenceRange> </ observation> </component> <component> < observation moodCode="EVN" classCode="OBS"> < templateId root="2.16.840.1.893154.10.20.22.4.2" /> < id nullFlavor="NA" /> <code codeSystem="local&quot ; code="CA" displayName="CALCIUM" /> < statusCode code="completed" /> <effectiveTime value=& quot;613880867682" /> <value unit="mg/dL" xsi:type ="PQ" value="8.6" /> <referenceRange> <observationRange> <text>8.5-10.1</text> </observationRange> </referenceRange> &lt ;/observation> </component> <component> < observation moodCode="EVN" classCode="OBS"> < templateId root="2.16.840.1.421856.10.20.22.4.2" /> < id nullFlavor="NA" /> <code codeSystem="local&quot ; code="BUN" displayName="BLOOD UREA NITROGEN" /> <statusCode code="completed" /> <effectiveTime value="435751836891" /> <value unit="mg/dL" xsi:type="PQ" value="20" /> <referenceRange& gt; <observationRange> <text>7-20</text& gt; </observationRange> </referenceRange> </observation> </component> <component> &lt ;observation moodCode="EVN" classCode="OBS"> &lt ;templateId root="2.16.840.1.070074.10.20.22.4.2" /> < id nullFlavor="NA" /> <code codeSystem="local&quot ; code="CREAT" displayName="CREATININE" /> < statusCode code="completed" /> <effectiveTime value=& quot;324662008769" /> <value unit="mg/dL" xsi:type ="PQ" value="0.7" /> <referenceRange> <observationRange> <text>0.6-1.0</text> </observationRange> </referenceRange> &lt ;/observation> </component> <component> < observation moodCode="EVN" classCode="OBS"> < templateId root="2.16.840.1.255573.10.20.22.4.2" /> < id nullFlavor="NA" /> <code codeSystem="local" code=& quot;NA" displayName="SODIUM" /> <statusCode code=&quot ;completed" /> <effectiveTime value="050590969023&quot ; /> <value unit="mmol/L" xsi:type="PQ" value ="142" /> <referenceRange> < observationRange> <text>135-148</text> & lt;/observationRange> </referenceRange> </ observation> </component> <component> < observation moodCode="EVN" classCode="OBS"> < templateId root="2.16.840.1.693622.10.20.22.4.2" /> < id nullFlavor="NA" /> <code codeSystem="local&quot ; code="CL" displayName="CHLORIDE" /> < statusCode code="completed" /> <effectiveTime value=& quot;594032000845" /> <value unit="mmol/L" xsi:type=" PQ" value="106" /> <referenceRange> <observationRange> <text>98-110</text> & lt;/observationRange> </referenceRange> </ observation> </component> <component> < observation moodCode="EVN" classCode="OBS"> < templateId root="2.16.840.1.377681.10.20.22.4.2" /> <id nullFlavor="NA" /> <code codeSystem="local" code="AST" displayName="AST/SGOT" /> < statusCode code="completed" /> <effectiveTime value=& quot;160958871154" /> <value unit="Units/L" xsi: type="PQ" value="32" /> <referenceRange> <observationRange> <text>10-37</text> </observationRange> </referenceRange> </ observation> </component> <component> < observation moodCode="EVN" classCode="OBS"> < templateId root="2.16.840.1.469116.10.20.22.4.2" /> < id nullFlavor="NA" /> <code codeSystem="local&quot ; code="ALT" displayName="ALT/SGPT" /> < statusCode code="completed" /> <effectiveTime value=& quot;843844817469" /> <value unit="Units/L" xsi: type="PQ" value="22" /> <referenceRange> <observationRange> <text>< 66</ text> </observationRange> </referenceRange> & lt;/observation> </component> <component> < observation moodCode="EVN" classCode="OBS"> < templateId root="2.16.840.1.958176.10.20.22.4.2" /> < id nullFlavor="NA" /> <code codeSystem="local&quot ; code="CO2" displayName="CARBON DIOXIDE" /> &lt ;statusCode code="completed" /> <effectiveTime value=& quot;239084399262" /> <value unit="mmol/L" xsi: type="PQ" value="25" /> <referenceRange> <observationRange> <text>21-32</text> </observationRange> </referenceRange> </ observation> </component> <component> < observation moodCode="EVN" classCode="OBS"> < templateId root="2.16.840.1.562375.10.20.22.4.2" /> < id nullFlavor="NA" /> <code codeSystem="local&quot ; code="TP" displayName="TOTAL PROTEIN" /> < statusCode code="completed" /> <effectiveTime value=& quot;940096231650" /> <value unit="gm/dL" xsi:type ="PQ" value="7.1" /> <referenceRange> <observationRange> <text>6.4-8.2</text> </observationRange> </referenceRange> &lt ;/observation> </component> <component> < observation moodCode="EVN" classCode="OBS"> < templateId root="2.16.840.1.879509.10.20.22.4.2" /> < id nullFlavor="NA" /> <code codeSystem="local&quot ; code="ALB" displayName="ALBUMIN" /> < statusCode code="completed" /> <effectiveTime value=& quot;685234930392" /> <value unit="gm/dL" xsi:type ="PQ" value="3.2" /> <interpretationCode codeSystem="local" code="*" /> < referenceRange> <observationRange> <text> 3.4-5.0</text> </observationRange> </ referenceRange> </observation> </component> < component> <observation moodCode="EVN" classCode=" OBS"> <templateId root="2.16.840.1.477412.10.20.22.4.2& quot; /> <id nullFlavor="NA" /> <code codeSystem="local" code="BILTOT" displayName="BILI TOTAL" /> <statusCode code="completed" /> &lt ;effectiveTime value="603242583634" /> <value unit=& quot;mg/dL" xsi:type="PQ" value="0.4" /> & lt;referenceRange> <observationRange> <text& gt;0.0-1.0</text> </observationRange> </ referenceRange> </observation> </component> < component> <observation moodCode="EVN" classCode=" OBS"> <templateId root="2.16.840.1.271766.10.20.22.4.2& quot; /> <id nullFlavor="NA" /> <code codeSystem="local" code="ALKP" displayName="ALKALINE PHOSPHATASE TOTAL" /> <statusCode code="completed&quot ; /> <effectiveTime value="607439522662" /> <value unit="Units/L" xsi:type="PQ" value="111& quot; /> <referenceRange> <observationRange> <text>50-136</text> </observationRange& gt; </referenceRange> </observation> </component > </organizer> </entry> <entry> <organizer moodCode="EVN" classCode="BATTERY"> <templateId root="2.16.840.1.708404.10.20.22.4.1" /> <id nullFlavor=& quot;NA" /> <code codeSystem="local" code="PHOS& quot; displayName="PHOSPHORUS" /> <statusCode code=" completed" /> <component> <observation moodCode=& quot;EVN" classCode="OBS"> <templateId root=" 2.16.840.1.389219.10.20.22.4.2" /> <id nullFlavor="NA& quot; /> <code codeSystem="local" code="PHOS&quot ; displayName="PHOSPHORUS" /> <statusCode code=" completed" /> <effectiveTimevalue="116860265929" / > <value unit="mg/dL" xsi:type="PQ" value=& quot;2.8" /> <referenceRange> < observationRange> <text>2.5-4.9</text> </ observationRange> </referenceRange> </observation&gt ; </component> </organizer> </entry> <entry> <organizer moodCode="EVN" classCode="BATTERY"> <templateId root="2.16.840.1.489659.10.20.22.4.1" /> < id nullFlavor="NA" /> <code codeSystem="local" code="MAG" displayName="MAGNESIUM" /> < statusCode code="completed" /> <component> < observation moodCode="EVN" classCode="OBS"> < templateId root="2.16.840.1.121254.10.20.22.4.2" /> < id nullFlavor="NA" /> <code codeSystem="local&quot ; code="MAG" displayName="MAGNESIUM" /> < statusCode code="completed" /> <effectiveTime value=& quot;[id number]" /> <value unit="mg/dL" xsi:type ="PQ" value="1.4" /> <interpretationCode codeSystem="local" code="*" /> <referenceRange> <observationRange> <text>1.8-2.4</text&gt ; </observationRange> </referenceRange> & lt;/observation> </component> </organizer> </entry&gt ; <entry> <organizer moodCode="EVN" classCode=" BATTERY"> <templateId root="[id number]& quot; /> <id nullFlavor="NA" /> <code codeSystem ="local" code="T4F" displayName="T4 FREE" /> <statusCode code="completed" /> <component> <observation moodCode="EVN" classCode="OBS"> <templateId root="2.16.840.1.645378.10.20.22.4.2" /> <id nullFlavor="NA" /> <code codeSystem=" local" code="T4F" displayName="T4 FREE" /> <statusCode code="completed" /> <effectiveTime value ="308001347993" /> <value unit="ng/dL" xsi: type="PQ" value="1.2" /> <referenceRange> <observationRange> <text>0.9-1.8</text&gt ; </observationRange> </referenceRange> & lt;/observation> </component> </organizer> </entry&gt ; <entry> <organizer moodCode="EVN" classCode=" BATTERY"> <templateId root="2.16.840.1.956096.10.20.22.4.1& quot; /> <id nullFlavor="NA" /> <code codeSystem ="local" code="TSH" displayName="THYROID STIM HORMONE ( TSH)" /> <statusCode code="completed" /> < component> <observation moodCode="EVN" classCode=" OBS"> <templateId root="2.16.840.1.928793.10.20.22.4.2& quot; /> <id nullFlavor="NA" /> <code codeSystem="local" code="TSH" displayName="THYROID STIM HORMONE (TSH)" /> <statusCode code="completed&quot ; /> <effectiveTime value="270931454691" /> <value unit="uIU/mL" xsi:type="PQ" value="0.29& quot; /> <interpretationCode codeSystem="local" code=& quot;*" /> <referenceRange> <observationRange& gt; <text>0.34-4.82</text> </ observationRange> </referenceRange> </observation&gt ; </component> </organizer> </entry> <entry> <organizer moodCode="EVN" classCode="BATTERY"> <templateId root="2.16.840.1.271659.10.20.22.4.1" /> < id nullFlavor="NA" /> <code codeSystem="local" code="ACTMN" displayName="ACETAMINOPHEN (TYLENOL)" /> <statusCode code="completed" /> <component> <observation moodCode="EVN" classCode="OBS"> <templateId root="2.16.840.1.425542.10.20.22.4.2" /> < id nullFlavor="NA" /> <code codeSystem="local&quot ; code="ACTMN" displayName="ACETAMINOPHEN (TYLENOL)" /> <statusCode code="completed" /> < effectiveTime value="288964202171" /> <value unit=&quot ;mcg/mL" xsi:type="PQ" value="9" /> < referenceRange> <observationRange> <text> 10-30</text> </observationRange> </ referenceRange> </observation> </component> </ organizer> </entry> <entry> <organizer moodCode="EVN " classCode="BATTERY"> <templateId root=" 2.16.840.1.854161.10.20.22.4.1" /> <id nullFlavor="NA&quot ; /> <code codeSystem="local" code="SALI" displayName="SALICYLATE (ASPIRIN)" /> <statusCode code=& quot;completed" /> <component> <observation moodCode="EVN" classCode="OBS"> <templateId root="2.16.840.1.188260.10.20.22.4.2" /> <id nullFlavor=& quot;NA" /> <code codeSystem="local" code=" SALINUM" displayName="SALICYLATE" /> <statusCode code="completed" /> <effectiveTime value=" 455003030774" /> <value unit="mg/dL" xsi:type=& quot;PQ" value="< 2.8" /> <referenceRange& gt; <observationRange> <text>2.8-29.0</ text> </observationRange> </referenceRange> & lt;/observation> </component> </organizer> </entry&gt ; <entry> <organizer moodCode="EVN" classCode=" BATTERY"> <templateId root="2.16.840.1.081499.10.20.22.4.1& quot; /> <id nullFlavor="NA" /> <code codeSystem ="local" code="ALC" displayName="ALCOHOL (ETHANOL) SERUM" /> <statusCode code="completed" /> < component> <observation moodCode="EVN" classCode=" OBS"> <templateId root="2.16.840.1.013465.10.20.22.4.2& quot; /> <id nullFlavor="NA" /> <code codeSystem="local" code="ALC" displayName="ALCOHOL ( ETHANOL) SERUM" /> <statusCode code="completed" /& gt; <effectiveTime value="438737089066" /> <value unit="mg/dL" xsi:type="PQ" value="< 10" /& gt; <referenceRange> <observationRange> & lt;text> < 10</text> </observationRange> </referenceRange> </observation> </component> </organizer> </entry> <entry> <organizer moodCode= "EVN" classCode="BATTERY"> <templateId root=&quot ;2.16.840.1.945131.10.20.22.4.1" /> <id nullFlavor="NA&quot ; /> <code codeSystem="local" code="GLUMON" displayName="GLUCOSE (POC)" /> <statusCode code=" completed" /> <component> <observation moodCode=& quot;EVN" classCode="OBS"> <templateId root=" 2.16.840.1.677821.10.20.22.4.2" /> <id nullFlavor="NA& quot; /> <code codeSystem="local" code="GLUMON& quot; displayName="GLUCOSE (POC)" /> <statusCode code=& quot;completed" /> <effectiveTime value="517689706096& quot; /> <value unit="mg/dL" xsi:type="PQ" value ="92" /> <referenceRange> < observationRange> <text>70-99</text> < /observationRange> </referenceRange> </observation& gt; </component> </organizer> </entry> <entry> <organizer moodCode="EVN" classCode="BATTERY"> <templateId root="2.16.840.1.466236.10.20.22.4.1" /> < id nullFlavor="NA" /> <code codeSystem="local" code="GLUMON" displayName="GLUCOSE (POC)" /> < statusCode code="completed" /> <component> < observation moodCode="EVN" classCode="OBS"> < templateId root="2.16.840.1.643962.10.20.22.4.2"/> <id nullFlavor="NA" /> <code codeSystem="local" code="GLUMON" displayName="GLUCOSE (POC)" /> &lt ;statusCode code="completed" /> <effectiveTime value=& quot;588096200485" /> <value unit="mg/dL" xsi:type ="PQ" value="149" /> <interpretationCode codeSystem="local" code="*" /> < referenceRange> <observationRange> <text>70- 99</text> </observationRange> </ referenceRange> </observation> </component></ organizer> </entry> <entry> <organizer moodCode="EVN " classCode="BATTERY"> <templateId root=" 2.16.840.1.286376.10.20.22.4.1" /> <id nullFlavor="NA" /& gt; <code codeSystem="local" code="GLUMON" displayName="GLUCOSE (POC)" /> <statusCode code=" completed" /> <component> <observation moodCode=& quot;EVN" classCode="OBS"> <templateId root=" 2.16.840.1.067355.10.20.22.4.2" /> <id nullFlavor="NA& quot; /> <code codeSystem="local" code="GLUMON& quot; displayName="GLUCOSE (POC)" /> <statusCode code=& quot;completed" /> <effectiveTime value="858070068582& quot; /> <value unit="mg/dL" xsi:type="PQ" value="125" /> <interpretationCode codeSystem=" local" code="*" /> <referenceRange> <observationRange> <text>70-99</text> </observationRange> </referenceRange> </ observation> </component> </organizer> </entry> & lt;entry> <organizer moodCode="EVN" classCode="BATTERY& quot;> <templateId root="2.16.840.1.483881.10.20.22.4.1" /& gt; <id nullFlavor="NA" /> <code codeSystem=" local" code="CAION" displayName="CALCIUM IONIZED" /&gt ; <statusCode code="completed" /> <component> <observation moodCode="EVN" classCode="OBS"> <templateId root="2.16.840.1.037023.10..22.4.2" /> <id nullFlavor="NA" /> <code codeSystem=" local" code="CAION" displayName="CALCIUMIONIZED" /> <statusCode code="completed" /> < effectiveTime value="610918442676" /> <value unit=&quot ;mg/dL" xsi:type="PQ" value="4.5" /> < referenceRange> <observationRange> <text> 4.5-5.3</text> </observationRange> </ referenceRange> </observation> </component> </ organizer> </entry> <entry> <organizer moodCode="EVN " classCode="BATTERY"> <templateId root=" 2.16.840.1.546886.10.20.22.4.1" /> <id nullFlavor="NA&quot ; /> <code codeSystem="local" code="CBCD" displayName="CBC W/DIFF" /> <statusCode code=" completed" /> <component> <observation moodCode=& quot;EVN" classCode="OBS"> <templateId root=" 2.16.840.1.824736.10..22.4.2" /> <id nullFlavor="NA& quot; /> <code codeSystem="local" code="EO#" displayName="EOSINOPHIL #" /> <statusCode code=" completed" /> <effectiveTime value="317361605076" /> <value unit="k/cumm" xsi:type="PQ" value=& quot;0.1" /> <referenceRange> < observationRange> <text>0.1-0.5</text> & lt;/observationRange> </referenceRange> </observation& gt; </component> <component> <observation moodCode="EVN" classCode="OBS"> <templateId root="2.16.840.1.811908.10..22.4.2" /> <id nullFlavor ="NA" /> <code codeSystem="local" code=" EO%" displayName="EOSINOPHIL %" /> & lt;statusCode code="completed" /> <effectiveTime value= "313115315726" /> <value unit="%" xsi :type="PQ" value="3" /> <referenceRange> <observationRange> <text>2-4</text> </observationRange> </referenceRange> </ observation> </component> <component> < observation moodCode="EVN" classCode="OBS"> < templateId root="2.16.840.1.638172.10.20.22.4.2" /> < id nullFlavor="NA" /> <code codeSystem="local&quot ; code="GR#" displayName="GRANULOCYTE #" /> < statusCode code="completed" /> <effectiveTime value=& quot;488920282585" /> <value unit="k/cumm" xsi: type="PQ" value="2.7" /> <referenceRange> <observationRange> <text>2.0-9.0</text> </observationRange> </referenceRange> </ observation> </component> <component> < observation moodCode="EVN" classCode="OBS"> < templateId root="2.16.840.1.340605.10..22.4.2"/> <id nullFlavor="NA" /> <code codeSystem="local" code="GR%" displayName="GRANULOCYTE %" /&gt ; <statusCode code="completed" /> < effectiveTime value="099985161651" /> <value unit=" %" xsi:type="PQ" value="57" /> < referenceRange> <observationRange> <text> 50-75</text> </observationRange> </ referenceRange> </observation> </component> < component> <observation moodCode="EVN" classCode=" OBS"> <templateId root="2.16.840.1.421155.10.20.22.4.2& quot; /> <id nullFlavor="NA" /> <code codeSystem="local" code="LY#" displayName="LYMPHOCYTE # " /> <statusCode code="completed" /> & lt;effectiveTime value="138804060634" /> <value unit=& quot;k/cumm" xsi:type="PQ" value="1.5" /> & lt;referenceRange> <observationRange> <text& gt;1.0-4.0</text></observationRange> </referenceRange&gt ; </observation> </component> <component> <observation moodCode="EVN" classCode="OBS"> <templateId root="2.16.840.1.703173.10.20.22.4.2" /> <id nullFlavor="NA" /> <code codeSystem=" local" code="LY%" displayName="LYMPHOCYTE %& quot; /> <statusCode code="completed" /> & lt;effectiveTime value="927590704980" /> <value unit=& quot;%" xsi:type="PQ" value="32" /> <interpretationCode codeSystem="local" code="*" /> <referenceRange> <observationRange> < text>20-30</text> </observationRange> </ referenceRange> </observation> </component> < component> <observation moodCode="EVN" classCode=" OBS"> <templateId root="2.16.840.1.806190.10.20.22.4.2" /& gt; <id nullFlavor="NA" /> <code codeSystem ="local" code="MCH" displayName="MEAN CELL HGB" /& gt; <statusCode code="completed" /> < effectiveTime value="539886665916" /> <value unit=&quot ;pg" xsi:type="PQ" value="28.9" /> < referenceRange> <observationRange> <text> 27.0-33.0</text> </observationRange></referenceRange& gt; </observation> </component> <component> <observation moodCode="EVN" classCode="OBS"> <templateId root="2.16.840.1.403976.10.20.22.4.2" /> <id nullFlavor="NA" /> <code codeSystem=" local" code="MCHC" displayName="MEAN CELL HGBCONCENTRATION& quot; /> <statusCode code="completed" /> & lt;effectiveTime value="607388748527" /> <value unit=& quot;g/dl" xsi:type="PQ" value="31.6" /> & lt;interpretationCode codeSystem="local" code="*" /> <referenceRange> <observationRange> <text> 32.0-36.0</text> </observationRange> </ referenceRange> </observation> </component> < component> <observation moodCode="EVN" classCode=" OBS"> <templateId root="2.16.840.1.749886.10.20.22.4.2& quot; /> <id nullFlavor="NA" /> <code codeSystem="local" code="MCV" displayName="MEAN CELL VOLUME" /> <statusCode code="completed" /> <effectiveTime value="675343466923" /> <value unit="fl" xsi:type="PQ" value="91.4" /> <referenceRange> <observationRange> < text>80.0-100.0</text> </observationRange> & lt;/referenceRange> </observation> </component> < component> <observation moodCode="EVN" classCode=" OBS"> <templateId root="2.16.840.1.726527.10..22.4.2& quot; /> <id nullFlavor="NA" /> <code codeSystem="local" code="MO#" displayName="MONOCYTE #& quot; /> <statusCode code="completed" /> & lt;effectiveTime value="171301403581" /> <value unit=&quot ;k/cumm" xsi:type="PQ" value="0.4" /> < referenceRange> <observationRange> <text> 0.1-1.0</text> </observationRange> </ referenceRange> </observation> </component> < component> <observation moodCode="EVN" classCode=" OBS"> <templateId root="2.16.840.1.242602.10.20.22.4.2& quot; /> <id nullFlavor="NA" /> <code codeSystem="local" code="MO%" displayName=" MONOCYTE %" /> <statusCode code="completed&quot ; /> <effectiveTime value="775330457336" /> < value unit="%" xsi:type="PQ" value="8" /& gt; <interpretationCode codeSystem="local" code="*& quot; /> <referenceRange> <observationRange> <text>4-6</text> </observationRange> </referenceRange> </observation> </ component> <component> <observation moodCode="EVN& quot; classCode="OBS"> <templateId root=" 2.16.840.1.584559.10.20.22.4.2" /> <id nullFlavor="NA& quot; /> <code codeSystem="local" code="RBC" displayName="RED BLOOD CELL" /> <statusCode code=" completed" /> <effectiveTime value="438873598940" /&gt ; <value unit="m/cumm" xsi:type="PQ" value=&quot ;4.09" /> <referenceRange> < observationRange> <text>4.00-6.00</text> </observationRange> </referenceRange> </ observation> </component> <component> < observation moodCode="EVN" classCode="OBS">< templateId root="2.16.840.1.414622.10..22.4.2" /> < id nullFlavor="NA" /> <code codeSystem="local&quot ; code="RDW" displayName="RED CELL DISTRIBUTION WIDTH" /&gt ; <statusCode code="completed" /> < effectiveTime value="054458452656" /> <value unit=&quot ;%" xsi:type="PQ" value="13.6" /> & lt;referenceRange> <observationRange> <text>11.0- 15.6</text> </observationRange> </ referenceRange> </observation> </component> < component> <observation moodCode="EVN" classCode=" OBS"> <templateId root="2.16.840.1.129722.10..22.4.2" / > <id nullFlavor="NA" /> <code codeSystem="local" code="WBC" displayName="WHITE BLOOD CELL" /> <statusCode code="completed" /> <effectiveTime value="590811205922" /> <value unit="k/cumm" xsi:type="PQ" value="4.8" /> <interpretationCode codeSystem="local" code="*" /& gt; <referenceRange> <observationRange> <text>5.0-10.0</text> </observationRange> </referenceRange> </observation> </component&gt ; <component> <observation moodCode="EVN" classCode="OBS"> <templateId root=" 2.16.840.1.159278.10.20.22.4.2" /> <id nullFlavor="NA& quot; /><code codeSystem="local" code="HGBT" displayName="HEMOGLOBIN" /> <statusCode code=" completed" /> <effectiveTime value="490905694612" /> <value unit="gm/dL" xsi:type="PQ" value=& quot;11.8" /> <interpretationCode codeSystem="local& quot; code="*" /> <referenceRange> < observationRange> <text>12.0-16.0</text> </observationRange> </referenceRange> </ observation> </component> <component> < observation moodCode="EVN" classCode="OBS"> < templateId root="2.16.840.1.941402.10.20.22.4.2" /> < id nullFlavor="NA" /> <code codeSystem="local&quot ; code="HCTT" displayName="HEMATOCRIT" /> < statusCode code="completed" /> <effectiveTime value=& quot;107622354120" /> <value unit="%" xsi: type="PQ" value="37.4" /> <referenceRange&gt ; <observationRange> <text>37.0-47.0</ text> </observationRange> </referenceRange> </observation> </component> <component> & lt;observation moodCode="EVN" classCode="OBS"> & lt;templateId root="2.16.840.1.525925.10.20.22.4.2" /> < id nullFlavor="NA" /> <code codeSystem="local&quot ; code="PLT" displayName="PLATELET COUNT" /> &lt ;statusCode code="completed" /> <effectiveTime value=& quot;761467778667" /> <value unit="k/cumm" xsi: type="PQ" value="194" /> <referenceRange> <observationRange> <text>150-450</text& gt; </observationRange> </referenceRange> </observation> </component> </organizer> </entry > <entry> <organizer moodCode="EVN"classCode=" BATTERY"> <templateId root="2.16.840.1.884140.10.20.22.4.1& quot; /> <id nullFlavor="NA" /> <code codeSystem ="local" code="METABC" displayName="METABOLIC PANEL, COMPREHN" /> <statusCode code="completed" /> & lt;component> <observation moodCode="EVN" classCode=&quot ;OBS"> <templateId root="2.16.840.1.876693.10.20.22.4.2 " /> <id nullFlavor="NA" /> <code codeSystem="local" code="K" displayName="POTASSIUM&quot ; /> <statusCode code="completed" /> < effectiveTime value="863277859918" /> <value unit=&quot ;mmol/L" xsi:type="PQ" value="3.8" /> < referenceRange> <observationRange> <text> 3.5-5.3</text> </observationRange> </ referenceRange> </observation> </component> < component> <observation moodCode="EVN" classCode=" OBS"> <templateId root="2.16.840.1.353142.10.20.22.4.2& quot; /> <id nullFlavor="NA" /> <code codeSystem="local" code="eGFR" displayName="EST GFR ( MDRD)" /> <statusCode code="completed" /> & lt;effectiveTime value="552702362706" /> <value unit=& quot;mL/min" xsi:type="PQ" value="> 60" /> <referenceRange> <observationRange> <text >> 59</text> </observationRange> </ referenceRange> </observation> </component> < component> <observation moodCode="EVN" classCode=" OBS"> <templateId root="2.16.840.1.624031.10.20.22.4.2& quot; /> <id nullFlavor="NA" /> <code codeSystem="local" code="GAP" displayName="ANION GAP& quot; /> <statusCode code="completed" /> & lt;effectiveTime value="355118644835" /> <value unit=& quot;mmol/L" xsi:type="PQ" value="9" /> &lt ;referenceRange> <observationRange> <text&gt ;5-15</text> </observationRange> </ referenceRange> </observation> </component> < component> <observation moodCode="EVN" classCode="OBS& quot;> <templateId root="2.16.840.1.398557.10.20.22.4.2&quot ; /> <id nullFlavor="NA" /> <code codeSystem="local" code="eCrCl" displayName="EST CrCl ( CG)" /> <statusCode code="completed" /> <effectiveTime value="573696109706" /> <value unit="mL/min" xsi:type="PQ" value="> 60" /& gt; <referenceRange> <observationRange> <text>> 59</text> </observationRange> </referenceRange> </observation> </component > <component><observation moodCode="EVN" classCode=& quot;OBS"> <templateId root=" 2.16.840.1.287888.10.20.22.4.2" /> <id nullFlavor="NA& quot; /> <code codeSystem="local" code="GLU" displayName="GLUCOSE" /> <statusCode code=" completed" /> <effectiveTime value="272783973525" /> <value unit="mg/dL" xsi:type="PQ" value=& quot;112" /> <interpretationCode codeSystem="local&quot ; code="*" /> <referenceRange> < observationRange> <text>70-99</text> < /observationRange> </referenceRange> </observation& gt; </component> <component> <observation moodCode="EVN"classCode="OBS"> <templateId root="2.16.840.1.234682.10.20.22.4.2" /> <id nullFlavor ="NA" /> <code codeSystem="local" code=" CA" displayName="CALCIUM" /> <statusCode code=& quot;completed" /> <effectiveTime value="526064457212& quot; /> <value unit="mg/dL" xsi:type="PQ" value="8.6" /> <referenceRange> < observationRange> <text>8.5-10.1</text> & lt;/observationRange> </referenceRange> </ observation> </component> <component> < observation moodCode="EVN" classCode="OBS"> < templateId root="2.16.840.1.315097.10.20.22.4.2" /> < id nullFlavor="NA" /> <code codeSystem="local&quot ; code="BUN" displayName="BLOOD UREA NITROGEN" /> <statusCode code="completed" /> <effectiveTime value="045995767075" /> <value unit="mg/dL" xsi:type="PQ" value="13" /> <referenceRange& gt; <observationRange> <text>7-20</text> </observationRange> </referenceRange> </ observation> </component> <component> < observation moodCode="EVN" classCode="OBS"> < templateId root="2.16.840.1.351566.10.20.22.4.2" /> < id nullFlavor="NA" /> <code codeSystem="local&quot ; code="CREAT" displayName="CREATININE" /> < statusCode code="completed" /> <effectiveTime value=& quot;518559168585" /> <value unit="mg/dL" xsi:type ="PQ" value="0.7" /> <referenceRange> <observationRange> <text>0.6-1.0</text> </observationRange> </referenceRange> &lt ;/observation> </component> <component> < observation moodCode="EVN" classCode="OBS"> < templateId root="2.16.840.1.320755.10.20.22.4.2" /> < id nullFlavor="NA" /> <code codeSystem="local" code="NA" displayName="SODIUM" /> <statusCode code="completed" /> <effectiveTime value=" 208459703153" /> <value unit="mmol/L" xsi:type=& quot;PQ" value="145" /> <referenceRange> <observationRange> <text>135-148</text> </observationRange> </referenceRange> </ observation> </component> <component> < observation moodCode="EVN" classCode="OBS"> < templateId root="2.16.840.1.668933.10.20.22.4.2" /> < id nullFlavor="NA" /> <code codeSystem="local&quot ; code="CL" displayName="CHLORIDE" /> < statusCodecode="completed" /> <effectiveTime value=& quot;287907685807" /> <value unit="mmol/L" xsi:type=& quot;PQ" value="111" /> <interpretationCode codeSystem="local" code="*" /> < referenceRange> <observationRange> <text> 98-110</text> </observationRange> </ referenceRange> </observation> </component> < component> <observation moodCode="EVN" classCode=" OBS"> <templateId root="2.16.840.1.507892.10..22.4.2& quot; /> <id nullFlavor="NA" /> <code codeSystem="local" code="AST"displayName="AST/SGOT&quot ; /> <statusCode code="completed" /> < effectiveTime value="596018064141" /> <value unit=&quot ;Units/L" xsi:type="PQ" value="29" /> < referenceRange> <observationRange> <text> 10-37</text> </observationRange> </ referenceRange> </observation> </component> < component> <observation moodCode="EVN" classCode=" OBS"> <templateId root="2.16.840.1.494758.10.20.22.4.2& quot; /> <id nullFlavor="NA" /> <code codeSystem="local" code="ALT" displayName="ALT/SGPT& quot; /> <statusCode code="completed" /> & lt;effectiveTime value="286397419697" /> <value unit=& quot;Units/L" xsi:type="PQ" value="18" /> & lt;referenceRange> <observationRange> <text>& amp;lt; 66</text> </observationRange> </ referenceRange> </observation> </component> < component> <observation moodCode="EVN" classCode=" OBS"> <templateId root="2.16.840.1.957241.10.20.22.4.2& quot; /> <id nullFlavor="NA" /><code codeSystem=& quot;local" code="CO2" displayName="CARBON DIOXIDE" /& gt; <statusCode code="completed" /> < effectiveTime value="240710708268" /> <value unit=&quot ;mmol/L" xsi:type="PQ" value="25" /> < referenceRange> <observationRange> <text> 21-32</text> </observationRange> </ referenceRange> </observation> </component> < component> <observation moodCode="EVN" classCode=" OBS"> <templateId root="2.16.840.1.575328.10.20.22.4.2& quot; /> <id nullFlavor="NA" /> <code codeSystem="local" code="TP" displayName="TOTAL PROTEIN " /> <statusCode code="completed" /> & lt;effectiveTime value="259757840763" /> <value unit=& quot;gm/dL" xsi:type="PQ" value="6.6" /> < referenceRange> <observationRange> <text> 6.4-8.2</text> </observationRange> </ referenceRange> </observation> </component> < component> <observation moodCode="EVN" classCode=" OBS"> <templateId root="2.16.840.1.086562.10.20.22.4.2& quot;/> <id nullFlavor="NA" /> <code codeSystem="local"code="ALB" displayName="ALBUMIN&quot ; /> <statusCode code="completed" /> < effectiveTime value="286448628091" /> <value unit=&quot ;gm/dL" xsi:type="PQ" value="3.0" /> < interpretationCode codeSystem="local" code="*" /> <referenceRange> <observationRange> < text>3.4-5.0</text> </observationRange> </ referenceRange> </observation> </component> < component> <observation moodCode="EVN" classCode=" OBS"> <templateId root="2.16.840.1.709154.10.20.22.4.2& quot; /> <id nullFlavor="NA" /> <code codeSystem="local" code="BILTOT" displayName="BILI TOTAL" /> <statusCode code="completed" /> <effectiveTime value="690885346203" /> <value unit="mg/dL" xsi:type="PQ" value="0.4" /> <referenceRange> <observationRange> &lt ;text>0.0-1.0</text> </observationRange> < /referenceRange> </observation> </component> &lt ;component> <observation moodCode="EVN" classCode="OBS& quot;> <templateId root="2.16.840.1.731168.10.20.22.4.2&quot ; /> <id nullFlavor="NA" /> <code codeSystem ="local" code="ALKP" displayName="ALKALINE PHOSPHATASE TOTAL" /> <statusCode code="completed" /> <effectiveTime value="343735277530" /> <value unit="Units/L" xsi:type="PQ" value="102" /> <referenceRange> <observationRange> & lt;text>50-136</text> </observationRange> &lt ;/referenceRange> </observation> </component> < /organizer> </entry> <entry> <organizer moodCode=" EVN" classCode="BATTERY"> <templateId root=" [id number]" /> <id nullFlavor="NA&quot ; /> <code codeSystem="local" code="HDLPRO" displayName="LIPID PANEL" /> <statusCode code=" completed" /> <component> <observation moodCode=" EVN" classCode="OBS"> <templateId root=" [id number]" /> <id nullFlavor="NA& quot; /> <code codeSystem="local" code="CHOL/HDL& quot; displayName="CHOLESTEROL/HDL RATIO" /> < statusCode code="completed" /> <effectiveTime value=& quot;[id number]" /> <value unit="" xsi:type=& quot;PQ" value="2.2" /> <referenceRange> <observationRange> <text> < 5.0</text> </observationRange> </referenceRange> & lt;/observation> </component> <component>< observation moodCode="EVN" classCode="OBS"> < templateId root="2.16.840.1.303064.10.20.22.4.2" /> < id nullFlavor="NA" /> <code codeSystem="local" code ="LDLX" displayName="LDL CHOLESTEROL" /> < statusCode code="completed" /> <effectiveTime value=& quot;896585393231" /> <value unit="mg/dL" xsi:type ="PQ" value="38" /> <referenceRange> <observationRange> <text>< 100</text> </observationRange> </referenceRange> </ observation> </component> <component> < observation moodCode="EVN" classCode="OBS"> < templateId root="2.16.840.1.461504.10.20.22.4.2" /> < id nullFlavor="NA" /> <code codeSystem="local&quot ; code="VLDL" displayName="VLDL CHOLESTEROL" /> & lt;statusCode code="completed" /> <effectiveTime value= "274356665438" /> <value unit="mg/dL" xsi: type="PQ" value="13" /> <referenceRange> <observationRange> <text>< 30</ text> </observationRange> </referenceRange> </observation> </component> <component> & lt;observation moodCode="EVN" classCode="OBS"> & lt;templateId root="2.16.840.1.284600.10.20.22.4.2" /> &lt ;id nullFlavor="NA" /> <code codeSystem="local& quot; code="TRIG" displayName="TRIGLYCERIDES" /> <statusCode code="completed" /> <effectiveTime value="573510109423" /> <value unit="mg/dL" xsi:type="PQ" value="66" /> <referenceRange> <observationRange> <text>< 150</ text> </observationRange> </referenceRange> </observation> </component> <component> <observation moodCode="EVN" classCode="OBS"> <templateId root="2.16.840.1.903852.10.20.22.4.2" /> <id nullFlavor="NA" /> <code codeSystem=" local" code="CHOL" displayName="CHOLESTEROL" /> <statusCode code="completed" /> < effectiveTime value="091531013070" /> <value unit=&quot ;mg/dL" xsi:type="PQ" value="95" /> < referenceRange> <observationRange> <text> < 200</text> </observationRange> </ referenceRange> </observation> </component> < component> <observation moodCode="EVN" classCode=" OBS"> <templateId root="2.16.840.1.565180.10.20.22.4.2& quot; /> <id nullFlavor="NA" /> <code codeSystem="local" code="HDL" displayName="HDL CHOLESTEROL" /> <statusCode code="completed" /&gt ; <effectiveTime value="023195490618" /> < value unit="mg/dL" xsi:type="PQ" value="44" /> <referenceRange> <observationRange> <text>> 39</text> </observationRange> </referenceRange> </observation> </component& gt; </organizer> </entry> <entry> <organizer moodCode="EVN" classCode="BATTERY"> <templateId root="2.16.840.1.586290.10.20.22.4.1" /> <id nullFlavor=& quot;NA" /> <code codeSystem="local" code="PHOS& quot; displayName="PHOSPHORUS" /> <statusCode code=" completed" /> <component> <observation moodCode=& quot;EVN" classCode="OBS"> <templateId root=" 2.16.840.1.470825.10.20.22.4.2" /> <id nullFlavor="NA& quot; /> <code codeSystem="local" code="PHOS&quot ; displayName="PHOSPHORUS" /> <statusCode code=" completed" /> <effectiveTime value="945870934924" / > <value unit="mg/dL" xsi:type="PQ" value=& quot;2.2" /> <interpretationCode codeSystem="local&quot ; code="*" /> <referenceRange> < observationRange> <text>2.5-4.9</text> & lt;/observationRange></referenceRange> </observation> </component> </organizer> </entry> <entry> &lt ;organizer moodCode="EVN" classCode="BATTERY"> < templateId root="2.16.840.1.331981.10.20.22.4.1" /> <id nullFlavor="NA" /> <code codeSystem="local" code= "MAG" displayName="MAGNESIUM" /> <statusCode code ="completed" /> <component> <observation moodCode ="EVN" classCode="OBS"> <templateId root=& quot;2.16.840.1.163158.10..22.4.2" /> <id nullFlavor=&quot ;NA" /> <code codeSystem="local" code="MAG& quot; displayName="MAGNESIUM" /> <statusCode code=&quot ;completed" /> <effectiveTime value="535996427662&quot ; /> <value unit="mg/dL" xsi:type="PQ" value= "1.4" /> <interpretationCode codeSystem="local& quot; code="*" /> <referenceRange> < observationRange> <text>1.8-2.4</text> & lt;/observationRange> </referenceRange> </ observation> </component> </organizer> </entry> & lt;entry> <organizer moodCode="EVN" classCode="BATTERY& quot;> <templateId root="2.16.840.1.013437.10..22.4.1" /& gt; <id nullFlavor="NA" /> <code codeSystem=" local" code="GLUMON" displayName="GLUCOSE (POC)" /> <statusCode code="completed" /> <component> <observation moodCode="EVN" classCode="OBS"> <templateId root="2.16.840.1.335156.10.20.22.4.2" /> <id nullFlavor="NA" /> <code codeSystem=" local" code="GLUMON" displayName="GLUCOSE (POC)" /> <statusCode code="completed" /> < effectiveTime value="679849750616" /> <value unit=&quot ;mg/dL" xsi:type="PQ" value="123" /> < interpretationCode codeSystem="local" code="*" /> <referenceRange> <observationRange> < text>70-99</text> </observationRange> </ referenceRange> </observation> </component> </ organizer> </entry> <entry> <organizer moodCode="EVN " classCode="BATTERY"> <templateId root=" 2.16.840.1.113906.10.20.22.4.1" /> <id nullFlavor="NA&quot ; /> <code codeSystem="local" code="GLUMON" displayName="GLUCOSE (POC)" /> <statusCode code=" completed" /> <component> <observation moodCode=& quot;EVN" classCode="OBS"> <templateId root=" 2.16.840.1.581957.10.20.22.4.2" /> <id nullFlavor="NA&quot ; /> <code codeSystem="local" code="GLUMON" displayName="GLUCOSE (POC)" /> <statusCode code=" completed" /> <effectiveTime value="366511217438" /> <value unit="mg/dL" xsi:type="PQ" value=& quot;160" /> <interpretationCode codeSystem="local&quot ; code="*" /> <referenceRange><observationRange& gt; <text>70-99</text> </observationRange > </referenceRange> </observation> </ component> </organizer> </entry> <entry> < organizer moodCode="EVN" classCode="BATTERY"> < templateId root="2.16.840.1.545290.10.20.22.4.1" /> <id nullFlavor="NA" /> <code codeSystem="local" code= "GLUMON"displayName="GLUCOSE (POC)" /> < statusCode code="completed" /> <component> < observation moodCode="EVN" classCode="OBS"> < templateId root="2.16.840.1.268843.10.20.22.4.2" /> < id nullFlavor="NA" /> <code codeSystem="local&quot ; code="GLUMON" displayName="GLUCOSE (POC)" /> & lt;statusCode code="completed" /><effectiveTime value=" 273588743601" /> <value unit="mg/dL" xsi:type=& quot;PQ" value="117" /> <interpretationCode codeSystem="local" code="*" /> < referenceRange> <observationRange> <text> 70-99</text> </observationRange> </ referenceRange> </observation> </component> </ organizer> </entry> <entry> <organizer moodCode="EVN " classCode="BATTERY"> <templateId root=" 2.16.840.1.005831.10.20.22.4.1" /> <id nullFlavor="NA&quot ; /> <code codeSystem="local" code="CBCD" displayName="CBC W/DIFF" /> <statusCode code=" completed" /> <component> <observation moodCode=& quot;EVN" classCode="OBS"> <templateId root=" 2.16.840.1.146479.10.20.22.4.2" /> <id nullFlavor="NA& quot; /><code codeSystem="local" code="BA#" displayName="BASOPHIL #" /> <statusCode code=" completed" /> <effectiveTime value="304659006789" /> <value unit="k/cumm" xsi:type="PQ" value=& quot;0.0" /> <referenceRange> < observationRange> <text>0.0-0.2</text> & lt;/observationRange> </referenceRange> </observation> </component> <component> <observation moodCode= "EVN" classCode="OBS"> <templateId root=&quot ;2.16.840.1.876602.10.20.22.4.2" /> <id nullFlavor="NA& quot; /> <code codeSystem="local" code="BA&#37 ;" displayName="BASOPHIL %" /> <statusCode code= "completed" /> <effectiveTime value="390780486745& quot; /> <value unit="%" xsi:type="PQ&quot ; value="1" /> <referenceRange> < observationRange> <text>0-1</text> </ observationRange> </referenceRange> </observation&gt ; </component> <component> <observation moodCode ="EVN" classCode="OBS"> <templateId root=& quot;2.16.840.1.132129.10.20.22.4.2" /> <id nullFlavor=&quot ;NA" /> <code codeSystem="local" code="EO#& quot; displayName="EOSINOPHIL #" /> <statusCode code=& quot;completed" /> <effectiveTime value="468378535019& quot; /> <value unit="k/cumm" xsi:type="PQ" value=& quot;0.1" /> <referenceRange> < observationRange> <text>0.1-0.5</text> & lt;/observationRange> </referenceRange> </ observation> </component> <component> < observation moodCode="EVN" classCode="OBS"> < templateId root="2.16.840.1.663137.10.20.22.4.2" /> <id nullFlavor="NA" /> <code codeSystem="local" code="EO%" displayName="EOSINOPHIL %" /> <statusCode code="completed" /> < effectiveTime value="383021901631" /> <value unit="&#37 ;" xsi:type="PQ" value="3" /> < referenceRange> <observationRange> <text> 2-4</text> </observationRange> </referenceRange&gt ; </observation> </component> <component> <observation moodCode="EVN" classCode="OBS"> <templateId root="2.16.840.1.123305.10..22.4.2" /> &lt ;id nullFlavor="NA" /> <code codeSystem="local& quot; code="GR#" displayName="GRANULOCYTE #" /> <statusCode code="completed" /> <effectiveTime value ="987141772163" /> <value unit="k/cumm" xsi: type="PQ" value="1.6" /> <interpretationCode codeSystem="local" code="*" /> < referenceRange> <observationRange> <text> 2.0-9.0</text> </observationRange> </ referenceRange> </observation> </component> < component> <observation moodCode="EVN" classCode=" OBS"> <templateId root="2.16.840.1.821066.10.20.22.4.2& quot; /> <id nullFlavor="NA" /> <code codeSystem="local" code="GR%" displayName=" GRANULOCYTE %" /> <statusCode code="completed& quot; /> <effectiveTime value="440716741032" /> &lt ;value unit="%" xsi:type="PQ" value="38" / > <interpretationCode codeSystem="local" code="*& quot; /> <referenceRange> <observationRange> <text>50-75</text> </observationRange&gt ; </referenceRange> </observation> </ component> <component> <observation moodCode="EVN& quot; classCode="OBS"> <templateId root=" 2.16.840.1.199806.10.20.22.4.2" /> <id nullFlavor="NA& quot; /> <code codeSystem="local" code="LY#" displayName="LYMPHOCYTE #" /> <statusCode code=" completed" /> <effectiveTime value="652211236725" /> <value unit="k/cumm" xsi:type="PQ" value=& quot;2.0" /> <referenceRange> < observationRange> <text>1.0-4.0</text> & lt;/observationRange> </referenceRange> </observation > </component> <component> <observation moodCode="EVN" classCode="OBS"> <templateId root="2.16.840.1.561853.10.20.22.4.2" /> <id nullFlavor ="NA" /> <code codeSystem="local" code=" LY%" displayName="LYMPHOCYTE %" /> & lt;statusCode code="completed" /> <effectiveTime value= "846457383984" /> <value unit="%" xsi :type="PQ" value="48" /> <interpretationCode codeSystem="local" code="*" /> < referenceRange> <observationRange> <text> 20-30</text> </observationRange> </ referenceRange> </observation> </component> < component> <observation moodCode="EVN" classCode=" OBS"> <templateId root="2.16.840.1.413441.10.20.22.4.2& quot; /> <id nullFlavor="NA" /> <code codeSystem="local" code="MCH" displayName="MEAN CELL HGB" /> <statusCode code="completed" /> <effectiveTime value="900832768125" /> <value unit="pg" xsi:type="PQ" value="28.6" /> <referenceRange> <observationRange> < text>27.0-33.0</text> </observationRange> </ referenceRange> </observation> </component> < component> <observation moodCode="EVN" classCode=" OBS"> <templateId root="2.16.840.1.838527.10.20.22.4.2& quot; /> <id nullFlavor="NA" /> <code codeSystem="local" code="MCHC" displayName="MEAN CELL HGB CONCENTRATION" /> <statusCode code="completed&quot ; /> <effectiveTime value="574065100655" /> <value unit="g/dl" xsi:type="PQ" value="30.9&quot ; /> <interpretationCode codeSystem="local" code=" *" /> <referenceRange> <observationRange> <text>32.0-36.0</text> </observationRange& gt; </referenceRange> </observation> </ component> <component> <observation moodCode="EVN& quot; classCode="OBS"> <templateId root=" 2.16.840.1.446886.10..22.4.2" /> <id nullFlavor="NA& quot; /> <code codeSystem="local" code="MCV" displayName="MEAN CELL VOLUME" /> <statusCode code=& quot;completed" /> <effectiveTime value="145047254945" /> <value unit="fl" xsi:type="PQ" value=&quot ;92.5" /> <referenceRange> < observationRange> <text>80.0-100.0</text> </observationRange> </referenceRange> </ observation> </component> <component> < observation moodCode="EVN" classCode="OBS"> < templateId root="2.16.840.1.150643.10.20.22.4.2" /> < id nullFlavor="NA" /> <code codeSystem="local&quot ; code="MO#" displayName="MONOCYTE #" /> < statusCode code="completed" /> <effectiveTime value=& quot;059664905093" /> <value unit="k/cumm" xsi: type="PQ" value="0.4" /> <referenceRange> <observationRange> <text>0.1-1.0</text& gt; </observationRange> </referenceRange> </observation> </component> <component> &lt ;observation moodCode="EVN" classCode="OBS"> &lt ;templateId root="2.16.840.1.790176.10.20.22.4.2" /> < id nullFlavor="NA" /> <code codeSystem="local" code=& quot;MO%" displayName="MONOCYTE %" /> <statusCode code="completed" /> <effectiveTime value="809559267784" /> <value unit="%& quot; xsi:type="PQ" value="11" /> < interpretationCode codeSystem="local" code="*" /> <referenceRange> <observationRange> < text>4-6</text> </observationRange> </ referenceRange> </observation> </component> < component> <observation moodCode="EVN" classCode=" OBS"> <templateId root="2.16.840.1.275398.10.20.22.4.2& quot; /> <id nullFlavor="NA" /> <code codeSystem="local" code="RBC" displayName="RED BLOOD CELL" /> <statusCode code="completed" /> <effectiveTime value="480509967659" /> <value unit="m/cumm" xsi:type="PQ" value="3.74" /> <interpretationCode codeSystem="local" code="*" /&gt ; <referenceRange> <observationRange> <text>4.00-6.00</text> </observationRange> </referenceRange> </observation></component> & lt;component> <observation moodCode="EVN" classCode=&quot ;OBS"> <templateId root="2.16.840.1.209783.10.20.22.4.2 " /> <id nullFlavor="NA" /> <code codeSystem="local" code="RDW" displayName="RED CELL DISTRIBUTION WIDTH" /> <statusCode code="completed&quot ; /> <effectiveTime value="308380983535" /> <value unit="%" xsi:type="PQ" value="14.0& quot; /> <referenceRange> <observationRange> <text>11.0-15.6</text> </ observationRange> </referenceRange> </observation&gt ; </component> <component> <observation moodCode=& quot;EVN" classCode="OBS"> <templateId root=" 2.16.840.1.346269.10.20.22.4.2" /> <id nullFlavor="NA& quot; /> <code codeSystem="local" code="WBC" displayName="WHITE BLOOD CELL" /> <statusCode code=& quot;completed" /> <effectiveTime value="079124219922& quot; /> <value unit="k/cumm" xsi:type="PQ" value="4.2" /> <interpretationCode codeSystem=" local" code="*" /> <referenceRange> < observationRange> <text>5.0-10.0</text> & lt;/observationRange> </referenceRange> </ observation> </component> <component> < observation moodCode="EVN" classCode="OBS"> < templateId root="2.16.840.1.520454.10.20.22.4.2" /> < id nullFlavor="NA" /> <code codeSystem="local&quot ; code="HGBT" displayName="HEMOGLOBIN" /> < statusCode code="completed" /> <effectiveTime value=& quot;496002524152" /> <value unit="gm/dL" xsi:type ="PQ" value="10.7" /> <interpretationCode codeSystem="local" code="*" /> < referenceRange> <observationRange> <text>12.0- 16.0</text> </observationRange> </ referenceRange> </observation> </component> < component> <observation moodCode="EVN" classCode=" OBS"> <templateId root="2.16.840.1.573525.10.20.22.4.2& quot; /> <id nullFlavor="NA" /> <code codeSystem="local" code="HCTT" displayName="HEMATOCRIT& quot; /> <statusCode code="completed" /> < effectiveTime value="995888572967" /> <value unit=&quot ;%" xsi:type="PQ" value="34.6" /> & lt;interpretationCode codeSystem="local" code="*" /> <referenceRange> <observationRange> < text>37.0-47.0</text> </observationRange> &lt ;/referenceRange> </observation> </component> & lt;component> <observation moodCode="EVN" classCode=&quot ;OBS"> <templateId root="2.16.840.1.534533.10.20.22.4.2 " /> <id nullFlavor="NA" /> <code codeSystem="local" code="PLT" displayName="PLATELET COUNT" /> <statusCode code="completed" /> <effectiveTime value="297575467112" /><value unit=" k/cumm" xsi:type="PQ" value="182" /> < referenceRange> <observationRange> <text> 150-450</text> </observationRange> </ referenceRange> </observation></component> </ organizer> </entry> <entry> <organizer moodCode="EVN " classCode="BATTERY"> <templateId root=" 2.16.840.1.017289.10.20.22.4.1" /> <id nullFlavor="NA&quot ; /> <code codeSystem="local" code="METABC" displayName="METABOLIC PANEL, COMPREHN" /> <statusCode code ="completed" /> <component> <observation moodCode="EVN" classCode="OBS"> <templateId root="2.16.840.1.508847.10.20.22.4.2" /> <id nullFlavor ="NA" /> <code codeSystem="local" code=" K" displayName="POTASSIUM" /> <statusCode code=& quot;completed" /> <effectiveTime value="442675091174& quot; /> <value unit="mmol/L" xsi:type="PQ" value="4.6" /> <referenceRange> < observationRange> <text>3.5-5.3</text> </ observationRange> </referenceRange> </observation&gt ; </component> <component> <observation moodCode ="EVN" classCode="OBS"> <templateId root=& quot;2.16.840.1.462136.10.20.22.4.2" /> <id nullFlavor="NA&quot ; /> <code codeSystem="local" code="eGFR" displayName="EST GFR (MDRD)" /> <statusCode code=" completed" /> <effectiveTime value="505888206585" /> <value unit="mL/min" xsi:type="PQ" value=& quot;> 60" /> <referenceRange> < observationRange> <text>> 59</text> </ observationRange> </referenceRange> </observation&gt ; </component> <component> <observation moodCode ="EVN" classCode="OBS"> <templateId root=& quot;2.16.840.1.949122.10.20.22.4.2" /> <id nullFlavor=&quot ;NA" /> <code codeSystem="local" code="GAP& quot; displayName="ANION GAP" /> <statusCode code=&quot ;completed" /> <effectiveTime value="279290152318" /> <value unit="mmol/L" xsi:type="PQ" value=& quot;5" /> <referenceRange> < observationRange> <text>5-15</text> </ observationRange> </referenceRange> </observation&gt ; </component> <component> <observation moodCode ="EVN" classCode="OBS"> <templateId root=& quot;2.16.840.1.527743.10.20.22.4.2" /> <id nullFlavor=&quot ;NA" /> <code codeSystem="local" code="eCrCl& quot; displayName="EST CrCl (CG)" /> <statusCode code=& quot;completed" /> <effectiveTime value="706023513883& quot; /> <value unit="mL/min" xsi:type="PQ" value="> 60" /> <referenceRange> & lt;observationRange> <text>> 59</text> </observationRange> </referenceRange> </ observation> </component> <component> < observation moodCode="EVN" classCode="OBS"> < templateId root="2..840.1.076171.10..22.4.2" /> < id nullFlavor="NA" /> <code codeSystem="local&quot ; code="GLU" displayName="GLUCOSE" /> < statusCode code="completed" /> <effectiveTime value=& quot;356743349609" /> <value unit="mg/dL" xsi:type ="PQ" value="118" /> <interpretationCode codeSystem="local" code="*" /> < referenceRange> <observationRange> <text> 70-99</text> </observationRange> </ referenceRange> </observation> </component> < component> <observation moodCode="EVN" classCode=" OBS"> <templateId root="2.16.840.1.226681.10.20.22.4.2& quot; /> <id nullFlavor="NA" /> <code codeSystem="local" code="CA" displayName="CALCIUM&quot ; /> <statusCode code="completed" /> < effectiveTime value="300411747887" /><value unit="mg/dL& quot; xsi:type="PQ" value="7.9" /> < interpretationCode codeSystem="local" code="*" /> <referenceRange> <observationRange> < text>8.5-10.1</text> </observationRange> < /referenceRange> </observation> </component> &lt ;component> <observation moodCode="EVN" classCode=" OBS"> <templateId root="2.16.840.1.881044.10.20.22.4.2& quot; /> <id nullFlavor="NA" /> <code codeSystem="local" code="BUN" displayName="BLOOD UREA NITROGEN" /> <statusCode code="completed" /> <effectiveTime value="927664029226" /> < value unit="mg/dL" xsi:type="PQ" value="12" /> <referenceRange><observationRange> <text& gt;7-20</text> </observationRange> </ referenceRange> </observation> </component> < component> <observation moodCode="EVN" classCode=" OBS"> <templateId root="2.16.840.1.396677.10..22.4.2& quot; /> <id nullFlavor="NA" /> <code codeSystem="local" code="CREAT" displayName="CREATININE " /> <statusCode code="completed" /> & lt;effectiveTime value="600036006250" /> <value unit=& quot;mg/dL" xsi:type="PQ" value="0.7" /> & lt;referenceRange> <observationRange> <text& gt;0.6-1.0</text> </observationRange> </ referenceRange> </observation> </component> < component> <observation moodCode="EVN" classCode=" OBS"> <templateId root="2.16.840.1.339276.10.20.22.4.2& quot; /> <id nullFlavor="NA" /> <code codeSystem="local" code="NA" displayName="SODIUM" /> <statusCode code="completed" /> < effectiveTime value="992277553626" /> <value unit=&quot ;mmol/L" xsi:type="PQ" value="143" /> < referenceRange> <observationRange> <text> 135-148</text> </observationRange> </ referenceRange></observation> </component> < component> <observation moodCode="EVN" classCode=" OBS"> <templateId root="2.16.840.1.337887.10.20.22.4.2& quot; /> <id nullFlavor="NA" /> <code codeSystem="local" code="CL" displayName="CHLORIDE&quot ; /> <statusCode code="completed" /> < effectiveTime value="897182010450" /> <value unit="mmol/L " xsi:type="PQ" value="111" /> < interpretationCode codeSystem="local" code="*" /> <referenceRange> <observationRange> < text>98-110</text> </observationRange> </ referenceRange> </observation> </component> < component> <observation moodCode="EVN" classCode=" OBS"> <templateId root="2.16.840.1.464909.10.20.22.4.2& quot; /> <id nullFlavor="NA" /> <code codeSystem="local" code="AST" displayName="AST/SGOT& quot; /> <statusCode code="completed" /> < effectiveTime value="941051573545" /> <value unit=&quot ;Units/L"xsi:type="PQ" value="22" /> < referenceRange> <observationRange> <text> 10-37</text> </observationRange> </ referenceRange> </observation> </component> < component> <observation moodCode="EVN" classCode=" OBS"> <templateId root="2.16.840.1.929386.10.20.22.4.2& quot; /> <id nullFlavor="NA" /> <code codeSystem="local" code="ALT" displayName="ALT/SGPT& quot; /> <statusCode code="completed" /> & lt;effectiveTime value="494135689199" /> <value unit=& quot;Units/L" xsi:type="PQ"value="13" /> & lt;referenceRange> <observationRange> <text>&amp ;lt; 66</text> </observationRange> </ referenceRange> </observation> </component> < component> <observation moodCode="EVN" classCode=" OBS"> <templateId root="2.16.840.1.176959.10.20.22.4.2& quot; /> <id nullFlavor="NA" /> <code codeSystem="local" code="CO2" displayName="CARBON DIOXIDE" /> <statusCode code="completed" /> <effectiveTime value="444415916327" /> < value unit="mmol/L" xsi:type="PQ" value="27" /&gt ; <referenceRange> <observationRange> <text>21-32</text> </observationRange> </referenceRange> </observation> </component> < component> <observation moodCode="EVN" classCode=" OBS"> <templateId root="2.16.840.1.179015.10.20.22.4.2& quot; /> <id nullFlavor="NA" /> <code codeSystem="local" code="TP" displayName="TOTAL PROTEIN " /> <statusCode code="completed" /> & lt;effectiveTime value="866571703503" /> <value unit=& quot;gm/dL" xsi:type="PQ" value="6.1" /> < interpretationCode codeSystem="local" code="*" /> <referenceRange> <observationRange> < text>6.4-8.2</text> </observationRange> </ referenceRange> </observation> </component> < component> <observation moodCode="EVN" classCode=" OBS"> <templateId root="2.16.840.1.587826.10.20.22.4.2& quot; /> <id nullFlavor="NA" /> <code codeSystem="local" code="ALB" displayName="ALBUMIN&quot ; /> <statusCode code="completed" /> < effectiveTime value="651573014488" /> <value unit=&quot ;gm/dL" xsi:type="PQ" value="2.5" /> < interpretationCode codeSystem="local" code="*" /> <referenceRange> <observationRange> < text>3.4-5.0</text> </observationRange> </ referenceRange> </observation> </component> < component> <observation moodCode="EVN" classCode="OBS& quot;> <templateId root="2.16.840.1.011228.10.20.22.4.2&quot ; /> <id nullFlavor="NA" /> <code codeSystem="local" code="BILTOT" displayName="BILI TOTAL" /> <statusCode code="completed" /> <effectiveTime value="665920705260" /> <value unit="mg/dL" xsi:type="PQ" value="0.2" /> <referenceRange> <observationRange> <text>0.0 -1.0</text> </observationRange> </ referenceRange> </observation> </component> < component> <observation moodCode="EVN" classCode=" OBS"> <templateId root="[id number]& quot; /> <id nullFlavor="NA" /> <code codeSystem="local" code="ALKP" displayName="ALKALINE PHOSPHATASE TOTAL" /> <statusCode code="completed&quot ; /> <effectiveTime value="[id number]" /> <value unit="Units/L" xsi:type="PQ" value="104& quot; /> <referenceRange> <observationRange>& lt;text>50-136</text> </observationRange> &lt ;/referenceRange> </observation> </component> < /organizer> </entry> <entry> <organizer moodCode=" EVN" classCode="BATTERY"> <templateIdroot=" [id number]" /> <id nullFlavor="NA&quot ; /> <code codeSystem="local" code="PHOS" displayName ="PHOSPHORUS" /> <statusCode code="completed" /& gt; <component> <observationmoodCode="EVN" classCode="OBS"> <templateId root=" [id number]" /> <id nullFlavor="NA& quot; /> <code codeSystem="local" code="PHOS&quot ; displayName="PHOSPHORUS" /> <statusCode code=" completed" /> <effectiveTime value="[id number]" /> <value unit="mg/dL" xsi:type="PQ" value=& quot;2.3" /> <interpretationCode codeSystem="local&quot ; code="*" /> <referenceRange> < observationRange> <text>2.5-4.9</text> < /observationRange> </referenceRange> </observation& gt; </component> </organizer> </entry> <entry> & lt;organizer moodCode="EVN" classCode="BATTERY"> &lt ;templateId root="[id number]" /> <id nullFlavor="NA" /> <code codeSystem="local" code= "MAG" displayName="MAGNESIUM" /> <statusCode code ="completed" /> <component> <observation moodCode="EVN" classCode="OBS"> <templateId root="[id number]" /> <id nullFlavor=& quot;NA" /> <code codeSystem="local" code=" MAG" displayName="MAGNESIUM" /> <statusCode code=& quot;completed" /> <effectiveTime value="[id number]& quot; /> <value unit="mg/dL" xsi:type="PQ" value="1.8" /> <referenceRange> < observationRange> <text>1.8-2.4</text> & lt;/observationRange> </referenceRange> </ observation> </component> </organizer> </entry> < entry> <organizer moodCode="EVN" classCode="BATTERY&quot ;> <templateId root="[id number]" /> <id nullFlavor="NA" /> <code codeSystem="local& quot; code="GLUMON" displayName="GLUCOSE (POC)" /> & lt;statusCode code="completed" /> <component> &lt ;observation moodCode="EVN" classCode="OBS"> &lt ;templateId root="[id number]" /> < id nullFlavor="NA" /> <code codeSystem="local&quot ; code="GLUMON"displayName="GLUCOSE (POC)" /> & lt;statusCode code="completed" /> <effectiveTime value=& quot;[id number]" /> <value unit="mg/dL" xsi:type ="PQ" value="110" /> <interpretationCode codeSystem="local" code="*" /> < referenceRange> <observationRange> <text> 70-99</text> </observationRange> </ referenceRange> </observation> </component> </ organizer> </entry></section> Encounters ACCT Visit Discharge Status Pt. Type Provider Facility Loc./Unit Complaint No. Date/Time [id number] 07/12/2012 07/14/2012 DIS Inpatient Ehsan [id number] 14:30:00 13:12:00 Nava MEZA
[2017-10-03] MEDS ORDERED: ACETAMINOPHEN 325 MG TABLET PO PRN (03:14)
[2017-10-03] MEDS ORDERED: PROMETHAZINE 25 MG INJECTION IVP PRN (03:14)
[2017-10-03] MEDS ORDERED: ONDANSETRON 4 MG/2 ML INJECTION IVP PRN (03:14)
[2017-10-03 03:19] VITALS: BMI 32.8
--- NOTE | 2017-10-03 03:40 | History & Physical Report ---
History of Present Illness Date: 10/03/17 Chief complaint: Cough, Dizziness, postussive emesis HPI: Tiffanie is a pleasant 72-year-old female patient who is admitted in transfer from [facility], where she lives. She was seen in the emergency department there, they had no inpatient beds. She complains of 2 days of dizziness, cough Productive of green sputum, subjective fevers, poor by mouth intake, and posttussive emesis. she was notably hypoxic in the emergency department, and at least in transfer, was hypotensive in the 70 systolic range. A lactic acid was reported at 7.3 and the outlying emergency department. A chest x-ray showed a right infrahilar opacity, and she was noted to be hyponatremic with a sodium of 127, and acute kidney injury with a BUN of 65 and a creatinine of 2.2. She was given oxygen, IV normal saline, breathing treatments, Rocephin and azithromycin and transferred for further Inpatient evaluation and management. Review of Systems - Constitutional Constitutional: Present: anorexia, chills, fever(s) - EENMT Eyes: Absent: change in vision - Cardiovascular Cardiovascular: Present: dyspnea on exertion. Absent: chest pain, palpitations , syncope - Respiratory Respiratory: Present: cough, dyspnea, wheezing, chest congestion, excessive phlegm production. Absent: hemoptysis - Gastrointestinal Gastrointestinal: Absent: abdominal pain - Genitourinary Genitourinary: Absent: dysuria - Musculoskeletal Musculoskeletal: Present: muscle weakness. Absent: abnormal gait Past Medical History Patient Stated Medical History Peripheral Neuropathy Yes Hypertension Yes Myocardial Infarction Yes: 20 years ago Other Respiratory Yes: Hypoxia Diabetes Mellitus Type 2 Yes Ulcer Yes Hx Urinary Tract Infection Yes Ovarian Cysts Yes she states that she had a previous heart attack, followed by a heart catheterization with no stents placed. This was in [facility] she had a hospitalization in July with apparently similar symptoms. At that time she stated that she was fluid overloaded which made her respiratory distress worse. She has never been told she has congestive heart failure. She appears to have COPD, she is on home oxygen. She was never a smoker. Chronic pain after a fall down a flight of stairs when she was in her 40s she is healing from a right malleolus fracture and is in a cam walker she has a vaginal pessary Family History Updates: she states that her siblings are all in good health and no chronic medical problems in her family - Social History Smoking status: Never smoker second hand exposure: Yes ( her , though now she lives in [facility] alone ) Medications Home Medications Medication Instructions Recorded Confirmed Type Albuterol Sulfate 2.5 mg AEROSOL PRN 10/03/17 History Aspirin Chewable [ASA] 81 mg PO DAILY 10/03/17 10/03/17 History Gabapentin [Neurontin] 1 cap PO TID 10/03/17 10/03/17 History Hydrocodone/APAP 5/325 [[place] 1 tab PO TID 10/03/17 10/03/17 History 5/325] Lisinopril [Prinivil] 10 mg PO DAILY 10/03/17 10/03/17 History MethIMAzole [Tapazole] 5 mg PO DAILY 10/03/17 10/03/17 History Morphine Sulfate *SR* [Ms Contin] 45 mg PO TID 10/03/17 10/03/17 History Mupirocin Cream [Bactroban 2% 15 applicatio TOP 10/03/17 History Cream] Paroxetine [Paxil] 40 mg PO DAILY 10/03/17 10/03/17 History Allergies Allergy/AdvReac Type Severity Reaction Status Date / Time Canned fruit juice Allergy Mild Hives Uncoded 10/03/17 03:42 Mountain Dew Allergy Mild Hives Uncoded 10/03/17 03:42 Pepsi Allergy Mild Hives Uncoded 10/03/17 03:42 Exam Height/Weight/BMI: Height 5 ft 4 in Weight 86.8 kg Body Mass Index 32.8 - Constitutional Present: no acute distress, well nourished, average body habitus - Routine HEENT Exam Head: Present: normocephalic, atraumatic Eye: Present: EOMI ENT: Present: mucous membranes dry - Routine Neck Exam Present: supple, full ROM - Routine Respiratory Exam Present: prolonged expiratory phase Comments: coarse bilateral breath sounds especially with expiration, fair to good air exchange. - Routine Cardiovascular Exam Present: RRR - Routine Abdominal Exam Present: soft, normoactive bowel sounds, non distended. Absent: tenderness - Routine Extremities Exam Present: normal capillary refill. Absent: cyanosis, clubbing, edema Comments: Right leg is in a cam walker - Routine Skin Exam Present: intact. Absent: petechiae, rash - Routine Neurological Exam Present: alert, oriented X3, CN II-XII intact. Absent: sensory deficit, motor deficit - Routine Psychiatric Exam Present: normal affect - Additional findings Additional findings: examination performed using telemedicine equipment with the assistance of the bedside nurse Results - Labs CBC & Chem 7: 10/03/17 04:39 10/03/17 04:39 - Echocardiogram Echocardiogram: ordered on admission - Impressions reported laboratory data as mentioned above, full set of admission labs ordered at this time and will be reviewed when it is available Assessment and Plan (1) Community acquired pneumonia Problem details: chest x-ray is pending. Nasopharyngeal swab for viruses including influenza A is pending it was not performed at the outlying facility. Current visit: Yes Status: Acute (2) Acute kidney injury Problem details: Baseline creatinine is unknown, presumed to be normal as the patient denies any history of chronic kidney disease Current visit: Yes Status: Acute (3) Diabetes mellitus Problem details: Accu-Cheks ordered, the patient reports that she lost a significant amount of weight intentionally and is now diet controlled only Current visit: Yes Status: Acute (4) Coronary artery disease Problem details: little is known to this effect. Given her history of "volume overload" during her previous hospitalization in [facility], a 2D echocardiogram is ordered to further elucidate. Current visit: Yes Status: Acute Assessment and Plan: This is a pleasant 72-year-old woman transferred from [facility] emergency department with apparent community-acquired pneumonia, with hypoxia, suspect sepsis with additional data being gathered at this time. She is admitted to the medical floor hemodynamically stable, Rocephin and Zithromax will be continued along with IV fluids at least 130 mL/h of normal saline. Continue when necessary bronchodilators. Repeat chest x-ray is pending, as well as repeat labs which will need to continue to trend. Will provide further symptomatic supportive and diagnostic cares as the current workup or changes in her clinical scenario indicate. Plan of care was discussed with the patient and her nurse at the bedside at the time of my evaluation and they expressed understanding and desired to proceed. DVT Prophylaxis: Lovenox Resuscitation Status: Full Code - Physician Narrative Physician: Bernie Mike MD Narrative: Date: 10/03/17 Time: 1150 Dr. Negrete's note reviewed. See speech interviewed and examined. CC: Weakness, dizziness, cough HPI: Mrs. Wright is a 72-year-old female transferred from the emergency room in [facility] last night before admission with hypotension, hypoxia, sepsis, and possible pneumonia. The patient presented with complaints of weakness and inability to ambulate without holding on to things for 2-3 days with accompanying cough productive of green sputum, poor oral intake, posttussive emesis, and pleuritic pain with cough. The patient was reported to be hypoxic in the emergency room and during transfer systolic pressure was in the 70s. Patient describes feeling as though she will fall if she doesn't hold onto things but is vague about whether she is lightheaded or simply weak. Patient reports low-grade fevers but no sweats or chills. She describes decreased urine output for several days and reports that it was difficult to urinate. Labs at the outside facility included sodium 127, BUN 65, creatinine 2.2, lactic acid 7.3, white count 6.7, and hemoglobin 11.1. Differential was unremarkable. Chest x-ray demonstrated a mild right infrahilar opacity which was reported to be persistent from July 2017 and described as being suggestive of atelectasis or pneumonitis. There were no hospital beds available at [facility] the patient was subsequently transferred to [place] for admission. PH/SH/FH: agree with that recorded above with additional history of endometrial carcinoma in 2016, hyperlipidemia, depression, and hypothyroidism; surgical history of prior appendectomy/oophorectomy, benign breast mass resection, and ORIF right ankle. Patient has no history of illicit drug use or alcohol use. PCP is Dr. Jayne Bell; she wants her daughter and she to be her alternate decision-maker, and she is a full code. ROS: 10 point review completed with findings as previously described by Dr. Negrete and chronic hearing loss, chronic back pain, intermittent numbness in her fingers. EXAM: General-mildly dyspneic, otherwise NAD, alert, talkative; 95.992/50, 94%-2 L HEENT-PERRL, EOMI without nystagmus, conjunctiva clear, sclera anicteric, conjugate gaze, facial structures symmetric, oropharynx clear, neck supple and without adenopathy Lungs-respirations nonlabored, good airflow, crackles at the left base and faint wheezing throughout Cardiac-regular rhythm, S1-S2 Abd-soft, nontender, without palpable mass, bowel sounds present Ext-right foot-Cam Walker; +1 nonpitting edema left lower extremity Skin-without evidence of wound/generalized rash Neuro-CN 3-12 intact, motor tone normal, mild generalized weakness but symmetric power, sensation intact 4 extremities to light touch. DATA: White count 5.7, hemoglobin 10.1, differential unremarkable today. Lactic acid 0.6 BUN 62, creatinine 1.8, sodium 134 today. Liver enzymes unremarkable. UA negative. Respiratory viral panel positive for RSV. Chest x-ray reviewed by myself-no focal infiltrate, mild interstitial markings diffusely which radiology reads as possible atypical pneumonia/viral pneumonitis. A/P: Septic shock/lactic acidosis-presently outside facility, resolved Hypotension Hyponatremia RSV pneumonitis Possible pneumonia Acute renal failure COPD exacerbation Probable dehydration Coronary artery disease Chronic pain syndrome Recent fall with right malleolar fracture and right wrist fracture Blood pressure and elevated lactic acid suggest septic shock at the outside facility however both are improved and given identification of viral infection and marked dehydration suspect lactic acidosis volume related. Respiratory viral panel confirms viral infection with RSV; exam compatible with COPD exacerbation in conjunction with respiratory infection. Patient describes large volume sputum production-culture being obtained. Suspect respiratory symptoms are all due to viral infection but will continue antibiotics pending sputum report. Continue aggressive breathing treatments and add prednisone 40 mg daily for COPD exacerbation. Oxygen saturation currently stable on 2 L O2 which is chronic supplementation for patient. Renal function minimally improved overnight-Baseline creatinine unknown; continue IV fluids, check urine sodium/creatinine. Office labs have been requested. Monitor orthostatic vital signs. Patient describes increasing back pain with cough and after chronic narcotics were held overnight. Resume MS Contin at reduced dose of 30 mg tid. PT/OT consults. Patient is wearing Cam Walker at present and must continue to do so pending orthopedic follow-up by her report. Sepsis Assessment - Evaluation SIRS Criteria: RR > 20 Severe Sepsis: hypotension (SBP <90 or MAP <65 x2 readings), lactate > 2.0 mg/dL Septic Shock: Lactate > or equal to 4 mg/dL (outside facility) Hospital Course Summary Disclaimer: The visit summary below is not to be considered part of the above Progress Note. Hospital Course: 10/03/17 Patient transferred from [facility] emergency room after presenting with weakness , cough, lactic acidosis, hyponatremia, and acute renal failure. Hypotensive during transfer. Chest x-ray reported to show infrahilar fullness and treatment initiated with Rocephin and azithromycin in the emergency room and [facility]. Respiratory viral panel positive for RSV. Continue high-volume fluids, antibiotics pending sputum culture, aggressive breathing treatments, add prednisone 40 mg daily for COPD exacerbation. Baseline renal function being obtained from the office and urine sodium/creatinine being checked. PT/OT consults. No evidence of focal infiltrate and repeat chest x-ray.
[2017-10-03] MEDS: ALBUTEROL 2.5mg/3ml (0.083%) NEB AEROSOL PRN (04:40)
--- NOTE | 2017-10-03 08:43 | XRay Report ---
INDICATION: Possible pneumonia, hypoxia, SOA PROCEDURE: CHEST 2-VIEWS UPRIGHT (PA & LAT) Encounter: Initial COMPARISON: None FINDINGS: Small area of linear scarring in the lingula. Mild interstitial prominence in the lung bases. No focal lobar consolidation. There is no pleural effusion or pneumothorax. The heart size, mediastinal contours and pulmonary vascularity are within normal limits. There is no significant skeletal abnormality. IMPRESSION: Mild interstitial prominence could represent an atypical or viral pneumonia. .
[2017-10-03] MEDS: ENOXAPARIN 40 MG/0.4 ML INJECTION SQ SCH (09:09)
[2017-10-03] MEDS: AZITHROMYCIN 500 MG TABLET PO SCH (09:09)
[2017-10-03] MEDS: CEFTRIAXONE 1 G in NS 100 ML IV SCH (09:11)
[2017-10-03] MEDS: HYDROCODONE/APAP 5mg/325mg TABLET PO PRN ×2 (09:30→16:11)
[2017-10-03] MEDS: ASPIRIN 81 MG CHEWABLE TABLET PO SCH (10:38)
[2017-10-03] MEDS: GABAPENTIN 400 MG CAPSULE PO SCH ×2 (16:06→20:15)
[2017-10-03] MEDS: HYDROCODONE/APAP 5mg/325mg TABLET PO SCH ×2 (16:06→20:15)
[2017-10-03] MEDS: PredniSONE 20 MG TABLET PO SCH (16:12)
[2017-10-04] MEDS: NS 1,000 ML IV SCH ×2 (01:51→10:53)
[2017-10-04] MEDS: PAROXETINE 40 MG TABLET PO SCH (08:23)
[2017-10-04] MEDS: METHIMAZOLE 5 MG TABLET PO SCH (08:23)
[2017-10-04] MEDS: GABAPENTIN 400 MG CAPSULE PO SCH ×3 (08:23→20:52)
[2017-10-04] MEDS: PredniSONE 20 MG TABLET PO SCH (08:23)
[2017-10-04] MEDS: AZITHROMYCIN 500 MG TABLET PO SCH (08:23)
[2017-10-04] MEDS: ASPIRIN 81 MG CHEWABLE TABLET PO SCH (08:26)
[2017-10-04] MEDS: ENOXAPARIN 40 MG/0.4 ML INJECTION SQ SCH (08:28)
[2017-10-04] MEDS: CEFTRIAXONE 1 G in NS 100 ML IV SCH (08:36)
[2017-10-04] MEDS: HYDROCODONE/APAP 5mg/325mg TABLET PO SCH ×3 (08:41→20:52)
[2017-10-04] MEDS: HYDROCODONE/APAP 5mg/325mg TABLET PO PRN (10:30)
--- NOTE | 2017-10-04 13:07 | Echocardiogram ---
DATE OF PROCEDURE October 03, 2017 This is a two-dimensional echo with spectral Doppler, color-flow and M-mode. It was obtained in a patient with history of fluid overload. Left atrial dimension is normal. Left ventricular end-diastolic dimension is normal. Left ventricular wall thickness is normal. LV systolic function is normal with ejection fraction of 68%. Right atrium is normal. Right ventricle is normal. Aortic root dimension is normal. Mitral valve is morphologically normal with mild mitral regurgitation. Aortic valve is a trileaflet structure with no stenosis or insufficiency. Tricuspid valve shows [id number] tricuspid regurgitation with moderate pulmonary hypertension with estimated pulmonary artery systolic pressure of 46. Pulmonary valve shows trace of pulmonary insufficiency. There is no pericardial effusion. IMPRESSION 1. Normal LV systolic function with ejection fraction of 68%. 2. Mild mitral regurgitation. 3. [id number] tricuspid regurgitation with moderate pulmonary hypertension with estimated pulmonary artery systolic pressure of 46. 4. Trace of pulmonary insufficiency. MTDD
--- NOTE | 2017-10-04 18:01 | Progress Note ---
- Date 10/04/17 Subjective: 72y/o female patient who is admitted in transfer from [facility] where she lives. She was seen in the emergency department there. They had no inpatient beds. She complains of 2 days of dizziness, cough with green sputum, subjective fevers, poor oral intake, and posttussive emesis. She was notably hypoxic in the emergency department, and at least in transfer, was hypotensive in the 70's systolic. A lactic acid was reported at 7.3 and the outlying emergency department. A chest x-ray showed a right infrahilar opacity. She was noted to be hyponatremic with a sodium of 127, and acute kidney injury with a BUN of 65 and a creatinine of 2.2. She was given oxygen, IV normal saline, breathing treatments, Rocephin and azithromycin and transferred for further inpatient evaluation and management. Today, she complains of being sleepy. She continues to be short of breath but states it is better. She ambulated to the bathroom without much difficulty. She also continues to be a bit dizzy when up. She has been afebrile here. Respiratory panel was positive for RSV. She did manage to produce a sputum sample today so we will get that cultured as well. She denies chest discomfort or palpitations. She denies nausea, vomiting or abdominal pain. She does not have much of an appetite but was able to eat some of all the last 3 meals. She was quite hypotensive initially but now she's become more hypertensive. She currently has a fractured right handed a fractured right distal lower extremity fracture. She is currently in a cam walker. Her pain is controlled with respect to those fractures. Objective Vital signs: Temperature 98.1 F 10/04/17 15:45 Pulse Rate 70 10/04/17 15:45 Respiratory Rate 12 10/04/17 15:45 Blood Pressure 161/74 H 10/04/17 15:45 Pulse Oximetry 96 10/04/17 15:45 Height/Weight/BMI: Height 1.63 m Weight 87.7 kg Body Mass Index 32.8 Comments: Gen: alert and oriented. NAD Skin: warm and dry HEENT: NC/AT PERRL, EOMI, Sclera, lids and conjunctiva wnl. MMM. OP clear. Neck: No JVD, Carotids 2+ without bruits Lungs: course bilaterally with expiratory wheezes bilaterally. Abd: soft. +BS. NT/ND MS: No edema. Right lower extremity in a cam walker. Neuro: No focal deficits Results - Labs CBC & Chem 7: 10/03/17 04:39 10/03/17 04:39 Assessment and Plan (1) Community acquired pneumonia Problem details: chest x-ray is pending. Nasopharyngeal swab for viruses including influenza A is pending it was not performed at the outlying facility. Current visit: Yes Status: Acute (2) Acute kidney injury Problem details: Baseline creatinine is unknown, presumed to be normal as the patient denies any history of chronic kidney disease Current visit: Yes Status: Acute (3) Diabetes mellitus Problem details: Accu-Cheks ordered, the patient reports that she lost a significant amount of weight intentionally and is now diet controlled only Current visit: Yes Status: Acute (4) Coronary artery disease Problem details: little is known to this effect. Given her history of "volume overload" during her previous hospitalization in [place], a 2D echocardiogram is ordered to further elucidate. Current visit: Yes Status: Acute Assessment and Plan: 1. Septic shock/lactic acidosis -presented to outside facility, resolved -Blood pressure and elevated lactic acid suggest septic shock at the outside facility however both are improved and given identification of viral infection and marked dehydration suspect lactic acidosis volume related. 2. Hypotension -resolved. now hypertensive 3. HTN -Start Norvasc 5 mg daily -On lisinopril at home but will hold due to renal insufficiency 4. RSV pneumonitis -Supportive care 5. Possible pneumonia -Sputum cx pending -No elevated WBC, no fevers -+cough -On antibiotics for CAP-continue for now 6. Acute renal failure -Repeat lab in am 7. COPD exacerbation -Nebulizers, steroids. -On chronic oxygen at home at 2 liters. -PHTN PAP 46 8. Probable dehydration -IVF 9. Coronary artery disease -No anginal complaints. - ASA -Echo 10/03/17 shows normal EF 68% with Mild MR, Mild to mod TR and PAP 46mmHg 10. Chronic pain syndrome -On MS Contin at home-on lower dose here. 11. Recent fall with right malleolar fracture and right wrist fracture -Cam walker in right leg. -PT 12. Prophylaxis -Lovenox - Physician Narrative Narrative: Date: 10/04/17 Time: 1756 Hospital Course Summary Disclaimer: The visit summary below is not to be considered part of the above Progress Note. Hospital Course: 10/03/17 Patient transferred from [place] emergency room after presenting with weakness , cough, lactic acidosis, hyponatremia, and acute renal failure. Hypotensive during transfer. Chest x-ray reported to show infrahilar fullness and treatment initiated with Rocephin and azithromycin in the emergency room and [place]. Respiratory viral panel positive for RSV. Continue high-volume fluids, antibiotics pending sputum culture, aggressive breathing treatments, add prednisone 40 mg daily for COPD exacerbation. Baseline renal function being obtained from the office and urine sodium/creatinine being checked. PT/OT consults. No evidence of focal infiltrate and repeat chest x-ray.
[2017-10-04] MEDS: AMLODIPINE 5 MG TABLET PO SCH (20:52)
[2017-10-05] MEDS: ENOXAPARIN 40 MG/0.4 ML INJECTION SQ SCH (09:18)
[2017-10-05] MEDS: PAROXETINE 40 MG TABLET PO SCH (09:18)
[2017-10-05] MEDS: PredniSONE 20 MG TABLET PO SCH (09:18)
[2017-10-05] MEDS: ASPIRIN 81 MG CHEWABLE TABLET PO SCH (09:18)
[2017-10-05] MEDS: HYDROCODONE/APAP 5mg/325mg TABLET PO SCH ×3 (09:19→21:03)
[2017-10-05] MEDS: GABAPENTIN 400 MG CAPSULE PO SCH ×3 (09:19→21:03)
[2017-10-05] MEDS: METHIMAZOLE 5 MG TABLET PO SCH (09:19)
[2017-10-05] MEDS: CEFTRIAXONE 1 G in NS 100 ML IV SCH (09:20)
[2017-10-05] MEDS: ALBUTEROL 2.5mg/3ml (0.083%) NEB AEROSOL PRN (09:35)
--- NOTE | 2017-10-05 10:04 | XRay Report ---
INDICATION: RSV, Poss pna PROCEDURE: CHEST 2-VIEWS UPRIGHT (PA & LAT) Encounter: Initial COMPARISON: October 03, 2017 FINDINGS: Worsening airspace consolidation in the right lower lobe and mid lung. New trace right effusion. No pneumothorax. Left lung is clear. Heart size and mediastinal contours are stable. Impression: New right lower lobe pneumonia or aspiration. .
--- NOTE | 2017-10-05 13:16 | Progress Note ---
- Date 10/05/17 Subjective: 72y/o female patient who is admitted in transfer from [facility] where she lives. She was seen in the emergency department there. They had no inpatient beds. She complains of 2 days of dizziness, cough with green sputum, subjective fevers, poor oral intake, and posttussive emesis. She was notably hypoxic in the emergency department, and at least in transfer, was hypotensive in the 70's systolic. A lactic acid was reported at 7.3 and the outlying emergency department. A chest x-ray showed a right infrahilar opacity. She was noted to be hyponatremic with a sodium of 127, and acute kidney injury with a BUN of 65 and a creatinine of 2.2. She was given oxygen, IV normal saline, breathing treatments, Rocephin and azithromycin and transferred for further inpatient evaluation and management. Today, she continues to fill short of breath. She is coughing and is now coming up with some sputum production. She is ambulating to the bathroom. Orthostatic blood pressures were checked and she is not orthostatic. She has been afebrile here. Respiratory panel was positive for RSV. She denies chest discomfort or palpitations. She denies nausea, vomiting or abdominal pain. She currently has a fractured right hand and a fractured right distal lower extremity fracture. She is currently in a cam walker. Her pain is controlled. Objective Vital signs: Temperature 97.9 F 10/05/17 07:33 Pulse Rate 66 10/05/17 08:00 Respiratory Rate 16 10/05/17 09:35 Blood Pressure 193/83 H 10/05/17 07:40 Pulse Oximetry 95 10/05/17 09:49 Height/Weight/BMI: Height 1.63 m Weight 90.5 kg Body Mass Index 32.8 Comments: Gen: alert and oriented. NAD Skin: warm and dry HEENT: NC/AT PERRL, EOMI, Sclera, lids and conjunctiva wnl. MMM. OP clear. Neck: No JVD, Carotids 2+ without bruits Lungs: course bilaterally with expiratory wheezes and rhonchi on the right. Abd: soft. +BS. NT/ND MS: No edema. Right lower extremity in a cam walker. Neuro: No focal deficits Results - Labs CBC & Chem 7: 10/05/17 04:23 10/05/17 04:23 Assessment and Plan (1) Community acquired pneumonia Current visit: Yes Status: Acute (2) Acute kidney injury Problem details: Current visit: Yes Status: Resolved (3) Diabetes mellitus Problem details: Accu-Cheks ordered, the patient reports that she lost a significant amount of weight intentionally and is now diet controlled only Current visit: Yes Status: Chronic (4) Coronary artery disease Problem details: little is known to this effect. Given her history of "volume overload" during her previous hospitalization in [place], a 2D echocardiogram is ordered to further elucidate. Current visit: Yes Status: Acute Assessment and Plan: Assessment and Plan: 1. Septic shock/lactic acidosis -presented to outside facility, resolved -Blood pressure and elevated lactic acid suggest septic shock at the outside facility however both are improved and given identification of viral infection and marked dehydration suspect lactic acidosis volume related. 2. Hypotension -resolved. now hypertensive 3. HTN -Start Norvasc 5 mg daily -Will resume lisinopril as at home -will give a dose of Lasix today 4. RSV pneumonitis -Supportive care 5. Pneumonia -Sputum cx pending -No elevated WBC, no fevers -+cough -Rocephin and Azithromycin -CXR shows RLL/RML inflitrate -Dose Lasix times one today 6. Acute renal failure-resolved. -Repeat lab in am 7. COPD exacerbation -Nebulizers, steroids. -On chronic oxygen at home at 2 liters. -PHTN PAP 46 8. Probable dehydration -IVF 9. Coronary artery disease -No anginal complaints. - ASA -Echo 10/03/17 shows normal EF 68% with Mild MR, Mild to mod TR and PAP 46mmHg 10. Chronic pain syndrome-Appears controlled -On MS Contin at home-on lower dose here. 11. Recent fall with right malleolar fracture and right wrist fracture -Cam walker in right leg. -PT 12. DM -SSI 13. Prophylaxis -Lovenox - Physician Narrative Narrative: Date: 10/05/17 Time: 1315 Hospital Course Summary Disclaimer: The visit summary below is not to be considered part of the above Progress Note. Hospital Course: 10/03/17 Patient transferred from [place] emergency room after presenting with weakness , cough, lactic acidosis, hyponatremia, and acute renal failure. Hypotensive during transfer. Chest x-ray reported to show infrahilar fullness and treatment initiated with Rocephin and azithromycin in the emergency room and [place]. Respiratory viral panel positive for RSV. Continue high-volume fluids, antibiotics pending sputum culture, aggressive breathing treatments, add prednisone 40 mg daily for COPD exacerbation. Baseline renal function being obtained from the office and urine sodium/creatinine being checked. PT/OT consults. No evidence of focal infiltrate and repeat chest x-ray.
[2017-10-05] MEDS ORDERED: FUROSEMIDE 20 MG/2 ML INJECTION IVP ONE (13:57)
[2017-10-05] MEDS ORDERED: AZITHROMYCIN IV 500 MG in NS 250ml 250 ML IV SCH (14:00)
[2017-10-05] MEDS: LISINOPRIL 5 MG TABLET PO SCH (15:20)
[2017-10-05] MEDS: INSULIN ASPART 100unit/ml INJECTION SQ PRN ×2 (17:48→21:01)
[2017-10-05] MEDS: NS 1,000 ML IV SCH ×2 (23:25→23:26)
[2017-10-06] MEDS: ASPIRIN 81 MG CHEWABLE TABLET PO SCH (08:18)
[2017-10-06] MEDS: LISINOPRIL 5 MG TABLET PO SCH (08:19)
[2017-10-06] MEDS: AMLODIPINE 5 MG TABLET PO SCH (08:19)
[2017-10-06] MEDS: METHIMAZOLE 5 MG TABLET PO SCH (08:19)
[2017-10-06] MEDS: PAROXETINE 40 MG TABLET PO SCH (08:19)
[2017-10-06] MEDS: GABAPENTIN 400 MG CAPSULE PO SCH ×3 (08:20→20:20)
[2017-10-06] MEDS: HYDROCODONE/APAP 5mg/325mg TABLET PO SCH ×3 (08:20→20:20)
[2017-10-06] MEDS: CEFTRIAXONE 1 G in NS 100 ML IV SCH (08:21)
[2017-10-06] MEDS: PredniSONE 20 MG TABLET PO SCH ×2 (08:21→16:34)
[2017-10-06] MEDS: ENOXAPARIN 40 MG/0.4 ML INJECTION SQ SCH (08:21)
--- NOTE | 2017-10-06 08:37 | XRay Report ---
Indication: Follow up on PNA XR chest 2V: Comparison: 10/05/2017 Technique: PA and lateral chest Findings: Patient shows continued improvement in the infiltrative changes in the right chest. Small pleural effusion seen on the right. Heart size, central vascularity and mediastinum are unremarkable. No acute new findings seen on the left chest. Old healed proximal humeral fracture persists on the right. Impression: 1. Continued gradual improvement in pneumonic infiltrate in the right chest. 2. No additional acute new findings .
[2017-10-06] MEDS ORDERED: NS FLUSH BAG 500ml IV PRN (11:04)
[2017-10-06] MEDS: MAGNESIUM SULFATE 1gm PREMIX 1 GM/100 ML BAG IV SCH ×2 (11:06→12:35)
[2017-10-06] MEDS: SALINE FLUSH 10ml SYRINGE IV PRN ×2 (11:07→20:19)
[2017-10-06] MEDS ORDERED: AZITHROMYCIN 250 MG TABLET PO SCH (16:00)
--- NOTE | 2017-10-06 16:12 | Progress Note ---
- Date 10/06/17 Subjective: Tiffanie was seen right after walking from the bathroom. She states that she is "50% better". She continues to have cough. She denies any chest pain or pleuritic pain. She denies feeling weak or dizzy. Her appetite has been good and she denies any nausea. She requests a breathing treatment. She received her treatment yesterday and that helped with wheezing. She also states that she is out of her inhaler at home. Objective Vital signs: Temperature 97.0 F 10/06/17 15:44 Pulse Rate 72 10/06/17 15:44 Respiratory Rate 17 10/06/17 15:44 Blood Pressure 167/82 H 10/06/17 15:44 Pulse Oximetry 95 10/06/17 15:44 Height/Weight/BMI: Height 1.63 m Weight 88.6 kg Body Mass Index 32.8 - Constitutional Present: no acute distress, well nourished, well developed - Routine HEENT Exam Head: Present: normocephalic Eye: Absent: conjunctival icterus, scleral injection ENT: Present: mucous membranes moist, oropharynx clear - Routine Respiratory Exam Present: wheezes (occasional wheeze with forced expiration, otherwise breath sounds are clear) - Routine Cardiovascular Exam Present: RRR, S1, S2 - Routine Abdominal Exam Present: soft, normoactive bowel sounds, non distended, non tender - Routine Extremities Exam Present: no edema, pulses intact - Routine Back/Spine/Pelvis Exam Back/Spine: Present: full ROM - Routine Musculoskeletal Exam Musculoskeletal: Present: other (cam boot to right lower extremity) - Routine Skin Exam Present: intact, dry, warm - Routine Neurological Exam Present: alert, oriented X3, normal speech - Routine Psychiatric Exam Present: normal affect, normal thought process, cooperative Results - Labs CBC & Chem 7: 10/06/17 05:16 10/06/17 05:16 Assessment and Plan (1) Community acquired pneumonia Current visit: Yes Status: Acute (2) Acute kidney injury Problem details: Current visit: Yes Status: Resolved Assessment and Plan: Assessment Septic shock/lactic acidosis - resolved Hypotension - resolved RSV pneumonitis Community-acquired pneumonia Acute renal failure - resolved COPD exacerbation Dehydration - resolved Hypomagnesemia - not POA Recent fall with right malleolar fracture and right wrist fracture Pulmonary HTN with PAP 46 mm Hg Type 2 diabetes Coronary artery disease Underlying hypertension Chronic pain syndrome Plan: Hypomagnesemia -Mg 1.4; K 4.1 -Replace IV + PO COPD exacerbation/RSV -Continue Nebulizers, steroids. Decrease Prednisone to 20 mg daily starting in am. -will need Rx for inhaler upon discharge -On chronic oxygen at home at 2 liters. HTN with elevated BP -Started Norvasc 5 mg daily during hospitalization -Continue home dose lisinopril Pneumonia -Sputum cx pending -continue Rocephin and Azithromycin -CXR shows improving RLL/RML infiltrate Coronary artery disease -Echo 10/03/17 shows normal EF 68% with Mild MR, Mild to mod TR and PAP 46mmHg Gradually improving. Discussed with Dr. Mike. Possible discharge home soon. DVT Prophylaxis: Lovenox Resuscitation Status: Full Code - Physician Narrative Physician: Bernie Mike MD Narrative: Date: 10/06/17 Time: 2250 I have independently evaluated and examined this patient. I reviewed the chart, the patient's history, and the FABRIC DESIGNER/PA's documented findings as above. We discussed and formulated the assessment and plan as above with additions as below: Mrs. Wright seen much earlier in the day. That time she reported having a sinus headache with some residual cough (50% better than when she came in) and rare sputum production such that sputum sample has not been obtained. PT reported standby assistance when they worked with her today. Overall she reports feeling significantly better compared to admission. NAD alert Respirations nonlabored, good airflow, very faint expiratory wheezes posteriorly ; repetitive inspiration triggers cough Regular rhythm TSH depressed, free T4 within normal range--on methimazole Respiratory status improving progressively. Patient has completed 3 days of azithromycin 500 mg/day-can be discontinued. Completes 5 days of ceftriaxone tomorrow. Chest x-ray from earlier today reviewed by myself demonstrating progressive resolution in right-sided infiltrate. Hospital Course Summary Disclaimer: The visit summary below is not to be considered part of the above Progress Note. Hospital Course: 10/03/17 -10/04/17 Patient transferred from [place] emergency room after presenting with weakness , cough, lactic acidosis, hyponatremia, and acute renal failure. Hypotensive during transfer. Chest x-ray reported to show infrahilar fullness and treatment initiated with Rocephin and azithromycin in the emergency room and [place]. Respiratory viral panel positive for RSV. Continue high-volume fluids, antibiotics pending sputum culture, aggressive breathing treatments, add prednisone 40 mg daily for COPD exacerbation. No evidence of focal infiltrate and repeat chest x-ray. Physical and occupational therapy recommended skilled inpatient therapy. Echo 10/03/17 shows normal EF 68% with Mild MR, Mild to mod TR and PAP 46mmHg On 10/05/17, blood pressure increased, and home lisinopril was started. In addition, Norvasc 5 mg was initiated. She received a dose of Lasix on 10/05/17. Her acute kidney injury rapidly resolved, with the 27 and creatinine of 0.7. On 10/16/17, she continued to make progress. Prednisone was tapered down. Magnesium was low at 1.4, and this was replaced IV as well as by mouth.
[2017-10-06] MEDS: INSULIN ASPART 100unit/ml INJECTION SQ PRN ×2 (18:53→21:54)
[2017-10-06] MEDS ORDERED: FALL RISK - PHARMACY CONSULT XX ONE (20:13)
[2017-10-06] MEDS: MAGNESIUM OXIDE 400 MG TABLET PO SCH (20:20)
[2017-10-06] MEDS: ALBUTEROL 2.5mg/3ml (0.083%) NEB AEROSOL SCH (21:46)
[2017-10-06 23:53] VITALS: TEMP 97.3
[2017-10-07 07:41] VITALS: BP 174/81; PULSE 66; RESP 16
[2017-10-07] MEDS: ALBUTEROL 2.5mg/3ml (0.083%) NEB AEROSOL SCH ×2 (08:09→12:05)
[2017-10-07] MEDS: ENOXAPARIN 40 MG/0.4 ML INJECTION SQ SCH (08:30)
[2017-10-07] MEDS: HYDROCODONE/APAP 5mg/325mg TABLET PO SCH (08:30)
[2017-10-07] MEDS: METHIMAZOLE 5 MG TABLET PO SCH (08:31)
[2017-10-07] MEDS: ASPIRIN 81 MG CHEWABLE TABLET PO SCH (08:31)
[2017-10-07] MEDS: GABAPENTIN 400 MG CAPSULE PO SCH (08:31)
[2017-10-07] MEDS: AMLODIPINE 5 MG TABLET PO SCH (08:31)
[2017-10-07] MEDS: PAROXETINE 40 MG TABLET PO SCH (08:31)
[2017-10-07] MEDS: LISINOPRIL 5 MG TABLET PO SCH (08:31)
[2017-10-07] MEDS: PredniSONE 20 MG TABLET PO SCH (08:31)
[2017-10-07] MEDS: CEFTRIAXONE 1 G in NS 100 ML IV SCH (08:32)
[2017-10-07] MEDS: MAGNESIUM OXIDE 400 MG TABLET PO SCH (08:32)
[2017-10-07] MEDS: INSULIN ASPART 100unit/ml INJECTION SQ PRN (11:26)
[2017-10-07 12:22] VITALS: O2SAT 99
--- NOTE | 2017-10-07 12:36 | Discharge Summary ---
Discharge Information Date of admission: 10/03/17 03:15 Anticipated date of discharge: 10/07/17 Attending Physician: Bernie Mike MD Primary care physician: Dr Meli Bell - Discharge Diagnosis (1) Community acquired pneumonia Status: Acute Septic shock/lactic acidosis - resolved Hypotension - resolved RSV pneumonitis Community-acquired pneumonia Acute renal failure - resolved COPD exacerbation Dehydration - resolved Hypomagnesemia - not POA Recent fall with right malleolar fracture and right wrist fracture Pulmonary HTN with PAP 46 mm Hg Type 2 diabetes Coronary artery disease Underlying hypertension Chronic pain syndrome - Procedures Procedures: Date of Exam: 10/03/17 Type of Exam(s): US echo doppler complete DATE OF PROCEDURE October 03, 2017 This is a two-dimensional echo with spectral Doppler, color-flow and M-mode. It was obtained in a patient with history of fluid overload. Left atrial dimension is normal. Left ventricular end-diastolic dimension is normal. Left ventricular wall thickness is normal. LV systolic function is normal with ejection fraction of 68%. Right atrium is normal. Right ventricle is normal. Aortic root dimension is normal. Mitral valve is morphologically normal with mild mitral regurgitation. Aortic valve is a trileaflet structure with no stenosis or insufficiency. Tricuspid valve shows [id number] tricuspid regurgitation with moderate pulmonary hypertension with estimated pulmonary artery systolic pressure of 46. Pulmonary valve shows trace of pulmonary insufficiency. There is no pericardial effusion. IMPRESSION 1. Normal LV systolic function with ejection fraction of 68%. 2. Mild mitral regurgitation. 3. [id number] tricuspid regurgitation with moderate pulmonary hypertension with estimated pulmonary artery systolic pressure of 46. 4. Trace of pulmonary insufficiency. - Laboratory Labs: Dismissal labs 10/07/17 04:20 10/07/17 04:20 Renal function 10/03/17 10/07/17 04:39 04:20 Creatinine 1.8 H 0.6 L Thyroid studies 10/05/17 10/05/17 04:23 04:23 TSH 0.13 L Free T4 0.95 Respiratory panel 10/03/17 04:07 RSV (PCR) Detected A* - Radiology Radiology: Date of Exam: 10/06/17 Indication: Follow up on PNA XR chest 2V: Findings: Patient shows continued improvement in the infiltrative changes in the right chest. Small pleural effusion seen on the right. Heart size, central vascularity and mediastinum are unremarkable. No acute new findings seen on the left chest. Old healed proximal humeral fracture persists on the right. Impression: 1. Continued gradual improvement in pneumonic infiltrate in the right chest. 2. No additional acute new findings Date of Exam: 10/03/17 INDICATION: Possible pneumonia, hypoxia, SOA PROCEDURE: CHEST 2-VIEWS UPRIGHT (PA & LAT) FINDINGS: Small area of linear scarring in the lingula. Mild interstitial prominence in the lung bases. No focal lobar consolidation. There is no pleural effusion or pneumothorax. The heart size, mediastinal contours and pulmonary vascularity are within normal limits. There is no significant skeletal abnormality. IMPRESSION: Mild interstitial prominence could represent an atypical or viral pneumonia History of Present Illness HPI: Tiffanie is a pleasant 72-year-old female patient who is admitted in transfer from [place], where she lives. She was seen in the emergency department there, they had no inpatient beds. She complains of 2 days of dizziness, cough Productive of green sputum, subjective fevers, poor by mouth intake, and posttussive emesis. she was notably hypoxic in the emergency department, and at least in transfer, was hypotensive in the 70 systolic range. A lactic acid was reported at 7.3 and the outlying emergency department. A chest x-ray showed a right infrahilar opacity, and she was noted to be hyponatremic with a sodium of 127, and acute kidney injury with a BUN of 65 and a creatinine of 2.2. She was given oxygen, IV normal saline, breathing treatments, Rocephin and azithromycin and transferred for further Inpatient evaluation and management. Objective Vital signs: Temperature 97.3 F 10/07/17 07:37 Pulse Rate 66 10/07/17 07:37 Respiratory Rate 16 10/07/17 12:05 Blood Pressure 174/81 H 10/07/17 07:37 Pulse Oximetry 99 10/07/17 12:05 Height/Weight/BMI: Height 1.63 m Weight 90.4 kg Body Mass Index 32.8 - Constitutional Present: no acute distress, well nourished, well developed - Routine HEENT Exam Head: Present: normocephalic, atraumatic Eye: Present: EOMI ENT: Present: mucous membranes moist, dentition normal - Routine Respiratory Exam Present: CTA bilaterally. Absent: wheezes - Routine Cardiovascular Exam Present: RRR. Absent: murmur - Routine Abdominal Exam Present: soft, normoactive bowel sounds, non distended. Absent: tenderness - Routine Extremities Exam Present: edema (trace LLE), normal capillary refill Comments: R foot in boot - Routine Skin Exam Present: dry, warm - Routine Neurological Exam Present: alert, oriented X3, CN II-XII intact - Routine Lymphatic Exam Lymphatic: Absent: adenopathy - Routine Psychiatric Exam Present: normal affect, cooperative Hospital Course This is a general summary of the patient's hospital course. For more details refer to the complete medical record. Hospital course: 10/03/17 -10/04/17 Patient transferred from [place] emergency room after presenting with weakness , cough, lactic acidosis, hyponatremia, and acute renal failure. Hypotensive during transfer. Chest x-ray reported to show infrahilar fullness and treatment initiated with Rocephin and azithromycin in the emergency room and [place]. Respiratory viral panel positive for RSV. Continue high-volume fluids, antibiotics pending sputum culture, aggressive breathing treatments, add prednisone 40 mg daily for COPD exacerbation. No evidence of focal infiltrate and repeat chest x-ray. Physical and occupational therapy recommended skilled inpatient therapy. Echo 10/03/17 shows normal EF 68% with Mild MR, Mild to mod TR and PAP 46mmHg 10/05/17 Blood pressure increased, and home lisinopril was started. In addition, Norvasc 5 mg was initiated. She received a dose of Lasix on 10/05/17. Her acute kidney injury rapidly resolved, with the 27 and creatinine of 0.7. 10/06/17 She continued to make progress. Prednisone was tapered down. Magnesium was low at 1.4, and this was replaced IV as well as by mouth. 10/07/16 Patient dismissed today. Will continue her on Magnesium 400mg qd. She has refills on her albuterol inhaler and nebulizer vials at the pharmacy. Will have RT do teaching on albuterol inhaler with spacer. She was given a Rx for amlodipine and should continue her lisinopril. Monitor her BP's and bring log to f-u appt with her PCP. Has completed antibiotics and will DC prednisone after her 20mg dose today. F-u with PCP in 1wk. Time spent with patient: discharge greater than 30 minutes DVT Prophylaxis: Lovenox Discharge Plan - Discharge Disposition Discharge Date: 10/07/17 Disposition: 01 Discharged Home, Self-Care *Condition: Stable Reason For Visit (Visit label in EMR): CAP - Discharge Medications *Discharge Medications: New Magnesium Oxide [Magox] 400 mg PO DAILY #30 tab Albuterol HFA Inhaler [Ventolin Hfa 90 mcg/actuation] 2 puff ORAL INH Q4H PRN #1 inhaler PRN Reason: Shortness Of Air/Wheezing Continue Gabapentin [Neurontin] 1 cap PO TID Hydrocodone/APAP 5/325 [Dalhart 5/325] 1 tab PO TID MethIMAzole [Tapazole] 5 mg PO DAILY Morphine Sulfate *SR* [Ms Contin] 45 mg PO TID Paroxetine [Paxil] 40 mg PO DAILY Metoprolol Succinate 50 mg PO BID Albuterol Sulfate 2.5 mg AEROSOL PRN PRN Reason: Shortness Of Air/Wheezing Aspirin Chewable [ASA] 81 mg PO DAILY Lisinopril [Prinivil] 10 mg PO DAILY No Action Mupirocin Cream [Bactroban 2% Cream] 15 applicatio TOP - Discharge Packet/Instructions *Diet: Diabetic diet *Activity: As tolerated *Pain Management/Treatment: n/a *Wound Care: n/a Additional Instructions: Amlodipine is a new blood pressure medication. Take 1 pill daily. Monitory blood pressures and take copy of BP log with you to follow up visit with your doctor. You have refills on the albuterol inhaler and the vials of albuterol for your nebulizer machine at the [place] pharmacy. *Expected Signs/Symptoms: Continued improvement *Notify Physician if: you develop fever or shortness of breath *During Business Hours Contact: Dr. Bell's office *After Business Hours Contact: Dr. Bell's office and follow after hours instructions *Pending Lab/Results: No Pending Lab - Referrals/Follow Up *Referrals/Follow Up: Meli Bell MD [Physician] - 1 Week - Patient Handouts Patient Handouts: Community Acquired Pneumonia (GEN) Physician Narrative - Narrative Physician: Bernie Mike MD Attestation Narrative: Date: 10/07/17 Time: 2300 I have independently evaluated and examined this patient. I reviewed the chart, the patient's history, and the COMMUNICATIONS INTERN/PA's documented findings as above. We discussed and formulated the assessment and plan as above with additions as below: Tiffanie again reports that she feels "so much better". She has some cough but virtually no sputum production. She is experiencing some sinus and ear congestion but reports she has a nasal spray at home that she uses as needed. Respirations are nonlabored with good airflow and clear breath sounds. No wheezing was present today. Patient is alert and speech is fluent. Stable for discharge at this time. Antibiotics completed prior to discharge. Addendum entered and electronically signed by KATIE Morrissey 10/07/17 13:48 : ON DC, patient mentions that she takes metoprolol at home and wonders why she hadn't been given it here. Her metoprolol dosing was confirmed with the pharmacy. She will be dismissed home on her original metoprolol and lisinopril and we will not start the new prescription for amlodipine.
[2017-10-07] MEDS ORDERED: INHALER ASSIST DEVICE (Optichamber) MC ONE (13:15)
== END 2017-10-07 15:07 | disposition home or self-care (01) | DRG 194 ==
LOC: MED 02:45 → SUATTDRO 03:15
PROVIDERS: ADMIT Internal Medicine; ATTEND Internal Medicine